=== PATIENT | female | born 1950 | race Caucasian/White ===

== ENCOUNTER → 2021-02-09 10:48 | Outpatient (CLI) | payer MEDICARE, SELFPAY ==
--- NOTE | ~2021-02-09 | CT_ITS ---
EXAMINATION: CT abdomen pelvis w con INDICATION: Abdominal pain and weight loss TECHNIQUE: Computed tomographic images of the abdomen and pelvis were obtained after the administrati on of 100 cc of Omnipaque 350 intravenous contrast. The dose-length product (DLP) was 901.80 mGy-cm. Automated exposure control and iterative reconstruction technique were employed. COMPARISON: None available FINDINGS: The lung bases are clear. The heart size is normal. The liver is diffusely low in attenuati on when compared with the spleen, consistent with hepatic steatosis. There is a 4.1 cm cyst of the li sam. A subtle 2.8 cm lesion is present in the liver dome on image 22. The spleen, pancreas, and adren al glands are normal. The gallbladder is surgically absent. The kidneys are unremarkable. There is ca lcified atherosclerosis of the aorta and many of the other arteries. There is an infraumbilical ventr al hernia containing a short segment of small bowel. The upstream bowel is dilated up to 4 cm and dem onstrates a small bowel feces sign. The bowel distal to the hernia is decompressed. No free intraperi toneal gas is identified. No pathologically enlarged abdominal or pelvic lymph nodes are identified. There is severe thoracolumbar spondylosis. IMPRESSION: 1. Infraumbilical ventral hernia containing a short segment of small bowel with dilated upstream aysha l and decompressed distal bowel, consistent with obstruction. Given the ongoing nature of the patient 's symptoms and CT appearance, emergent surgical evaluation is recommended. These findings and recomm endations were discussed with Gabbi Romeo APRN at 1523 hours on 02/09/2021. 2. Subtle indeterminate lesion of the liver dome. Follow-up by MRI without and with contrast is recom mended. Reviewed, dictated and finalized at location B. OM FEED MILL OPERATOR HELPER IMPRESSION: 1. Infraumbilical ventral hernia containing a short segment of small bowel with dilated upstream bowel and decompressed distal bowel, consistent with obstruct ion. Given the ongoing nature of the patient's symptoms and CT appearance, андрей gent surgical evaluation is recommended. These findings and recommendations radha swanson discussed with Gabbi Romeo APRN at 1523 hours on 02/09/2021. 2. Subtle indeterminate lesion of the liver dome. Follow-up by MRI without and with contrast is recommended.
[2021-02-09 11:06] LABS: Estimated Glomerular Filt Rate > 60
== END ==
PROVIDERS: Visit Provider Nurse Practitioner Family
DX: R10.13 Epigastric pain (principal); K43.9 Ventral hernia without obstruction or gangrene
CPT/HCPCS: 74177; Q9967

== ENCOUNTER → 2021-02-18 12:43 | Outpatient (CLI) | payer MEDICARE, SELFPAY ==
--- NOTE | ~2021-02-18 | MR_ITS ---
EXAMINATION: MR abdomen wo/w con DATE: 02/18/2021 13:58 INDICATION: Abnormal findings on diagnostic imaging of liver and biliary tract. Liver mass. TECHNIQUE: Magnetic resonance imaging (MRI) of the abdomen was performed without and with 19 mL Multi Kar intravenous contrast. Sequences included coronal T2-weighted FS FSE, coronal and axial FS FIEST A, axial T2-weighted FSE, coronal LAVA-flex, axial STIR FSE, axial DWI, axial dual-echo T1-weighted F SPGR, and axial LAVA. Postcontrast sequences included coronal LAVA-flex and a time course of axial LA VA. COMPARISON: CT abdomen and pelvis 02/09/2021, chest CT 11/29/14 FINDINGS: There is diffuse hepatic steatosis. There are 17 mm and 13 mm enhancing masses in right hepatic lobe. There is a 4.9 cm cyst in left hepatic lobe abutting the gallbladder fossa. The spleen is normal. 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 The adrenal glands and kidneys are normal. There is dilated small bowel in right abdomen. There is a 5.6 cm mass of small bowel that extends into the right rectus abd ominis muscle. There is mild aortocaval and left para-aortic lymphadenopathy measuring up to 15 x 13 mm in the left para-aortic chain. There is no free intraperitoneal fluid. IMPRESSION: 1. 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 Ultrasound-guided core needle biopsy of the intramuscular portion of the mass is recommende d for diagnosis. 2. Dilated small bowel, consistent with partial obstruction from the small bowel mass. 3. 17 mm and 13 mm liver masses, consistent with metastatic disease. 4. Mild retroperitoneal lymphadenopathy. Reviewed, dictated and finalized at location A. AL WORK THERAPIST IMPRESSION: 1. 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 Ultrasound-guided core needle biopsy of the int ramuscular portion of the mass is recommended for diagnosis. 2. Dilated small bowel, consistent with partial obstruction from the small aysha l mass. 3. 17 mm and 13 mm liver masses, consistent with metastatic disease. 4. Mild retroperitoneal lymphadenopathy.
== END ==
PROVIDERS: Visit Provider Nurse Practitioner Family
DX: R93.2 Abnormal findings on diagnostic imaging of liver and biliary tract (principal); R63.4 Abnormal weight loss
CPT/HCPCS: 74183; A9577

== ENCOUNTER 2021-03-07 08:54 | Outpatient (CLI) | payer MEDICARE, SELFPAY ==
--- NOTE | 2021-03-07 09:42 | ECG_ITS ---
Measurements Intervals [place] Rate: 92 P: 66 FL: 175 QRS: -12 QRSD: 88 T: 22 QT: 349 QTc: 433 Interpretive Statements SINUS RHYTHM DELAYED PRECORDIAL R/S TRANSITION BORDERLINE T WAVE ABNORMALITY- ANTERIOR LEADS BASELINE ARTIFACT- I, II, III, AVR, AVF BORDERLINE ECG Electronically Signed On 03-07-2021 10:22:04 RESIDENT DOCTOR by Ludin Bland D.O.
[2021-03-07 10:12] LABS: Hematocrit 31.7 % (37.0-47.0); Hemoglobin 10.3 g/dL (12.0-15.0)
[2021-03-07 10:51] LABS: Carcinoembryonic Antigen 9.7 ng/mL (0.0-3.0)
== END 2021-03-07 08:55 | disposition home or self-care (01) ==
PROVIDERS: Anesthesiology; Visit Provider Surgery
DX: K63.89 Other specified diseases of intestine (principal); Z01.818 Encounter for other preprocedural examination; R94.31 Abnormal electrocardiogram [ECG] [EKG]
CPT/HCPCS: 36415; 82378; 85014; 85018; 86850; 86900; 86901; 93005

== ENCOUNTER 2021-03-09 14:26 | Inpatient (IN) | payer MEDICARE, SELFPAY ==
--- NOTE | 2021-03-07 08:37 | PC.NURSE ---
Report to the Outpatient Waiting Room, entrance under the green pavilion located off [facility], at time _0830_ on date _03/09/21_. OR Time: _1030 AM_. - You and your visitor will be asked a series of questions to screen for COVID 19 for your protection. - A mask is required within the hospital. - Only one visitor is allowed at this time. Patient visitors will be guided where to wait when not with patient. Preoperative COVID Testing Requirements: No COVID Test needed if: (proof is required; if not received patient will have Rapid Test prior to entry) - Patient has received COVID Vaccine at least 14 days prior to procedure date or - Patient has positive COVID test result within last 90 days of surgery date. COVID Test needed if above criteria is not met If not COVID vaccinated a COVID test must be conducted within 72 hours of surgery and patient is asked to isolate self from time of testing until procedure. You will go to the [address] [facility] for your COVID testing. The [address] [facility] is located at the corner of [address] [facility]. You will only be called if COVID results are positive and your surgeon may reschedule your elective surgery date. Patients may have clear liquids (water, carbonated beverages, clear teas, apple juice) until 3 hours prior to surgery (0730 AM) with a maximum of 20 ounces. - No food 03/08/21 until time of surgery - Infants may have breast milk until 4 hours before surgery, formula 6 hours prior to surgery. - Children will be allowed to drink immediately following surgery. If applicable, please bring a bottle or sippy cup to assist with drinking. Juice, water, soda, and popsicles are readily available. For infants on formula, please bring formula the day of surgery. Pacifiers are allowed. Take the following medications with a SIP of water the morning of surgery: ___NONE Medications to discontinue per physician _ALL VITAMINS & SUPPLEMENTS - 3 DAYS PRIOR TO SURGERY PER ANESTHESIA ____ Date to take last dose__AS OF TODAY Please no make-up, nail pashto, hairspray, perfume, deodorant, or body powder the day of surgery. No jewelry (including any body piercings) or valuables the day of surgery, leave them at home. Please take a shower or bath the night before, or the morning of, surgery with an antibacterial soap. Wear comfortable, loose fitting clothing. Children are encouraged to wear pajamas. - Jewelry must be removed prior to entering the operating room. Rings and piercings that are not removed may be cut off. - The hospital will not accept responsibility for valuables. - Please leave all valuables, including medications, at home the day of surgery. If you are going home after surgery, a licensed local flatbed driver must drive you home. - NO public transportation without another adult. - We recommend that an adult stay with you for 24 hours following discharge. - We also recommend that you do not drive, make important decision, drink alcoholic beverages, or take any drugs that were not prescribed by your health care provider for at least 24 hours after your discharge time. For Pediatric surgeries, we recommend two adults accompany the child home (only one inside the building at this time). Follow any additional instructions given to you from your surgeon. CLEAR LIQUID DIET DAY PRIOR TO SURGERY, HIBICLENS SHOWER NIGHT BEFORE & AM OF SURGERY. Telephone instructions given to PT and asked if any additional questions and then verbalized understanding. Patient advised to call surgeon office or pre surgery nurse liaison [phone] if any additional questions.
[2021-03-07 09:14] VITALS: BP 160/78; PULSE 92; RESP 18; TEMP 36.7; O2SAT 96; BMI 37.6
[2021-03-09] VITALS (19 sets, daily range): BP systolic 124–163; BP diastolic 56–78; PULSE 81–101; RESP 13–21; TEMP 35.6–36.6; O2SAT 91–100
[2021-03-09] MEDS: ACETAMINOPHEN 500 MG TABLET 1000 MG PO (08:57)
[2021-03-09] MEDS: LACTATED RINGERS 1,000 ML 30 ML IV CONT ×3 (09:09→13:35)
[2021-03-09] MEDS: KETOROLAC 15 MG/ML VIAL (*BKC) IV PUSH (09:13)
--- NOTE | 2021-03-09 09:46 | PM.IMHP ---
H&P: HPI History of Present Illness Date/Time: 03/09/21 09:46 Chief Complaint: Small bowel mass Narrative: This is a 70-year-old woman who initially presented with a possible incarcerated hernia. She was experiencing generalized abdominal pain with bloating and nausea. She was also having problems with her bowels moving. She saw a engineering program manager and CT was ordered which showed evidence of a possible incarcerated hernia in the left lower quadrant. This appeared to be causing a partial bowel obstruction. 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 She is showing signs of near obstruction with episodes of bloating and nausea with solid foods. She now presents for exploratory laparotomy with small-bowel resection. Review of Systems Review of Systems: All systems reviewed & are unremarkable except as noted in HPI and below Constitutional: Constitutional: Denies chills, Denies fever(s), Denies headache(s) and Denies weight loss Eyes: Eyes: Denies change in vision ENT: Denies dizziness, Denies headache(s), Denies neck mass and Denies throat swelling Cardiovascular: Cardiovascular: Denies chest pain, Denies lightheadedness and Denies dyspnea Respiratory: Respiratory: Denies cough, Denies dyspnea and Denies wheezing Gastrointestinal: Gastrointestinal: Denies abdominal pain, Denies change in bowel habits, Denies nausea and Denies vomiting Genitourinary: Genitourinary: Denies hematuria and Denies dysuria Musculoskeletal: Musculoskeletal: Reports as per HPI Integumentary/Breasts: Skin/Breast: Reports as per HPI Neurologic: Denies dizziness and Denies headache(s) Allergic/Immunologic: Allergic/Immunologic: Denies throat swelling and Denies wheezing [facility] Past Medical History Medical History History of pneumonia (~2015) Osteoarthritis of left knee Osteoarthritis of right knee Surgical History Surgical History H/O: hysterectomy (~1993) Hx of cholecystectomy Family History Family History Mother Hypertension Congestive heart failure Father Lung cancer Other Breast cancer Diabetes mellitus Social History Social History (Reviewed 02/14/21 @ 16:56 by ARSALAN Garcia Smoking packs per day: 1 Smoking cigarettes per day: 20.0 Years smoked: 30 Smoking pack-years: 30.00 Smoking status: Former smoker Tobacco type: cigarettes Second hand tobacco smoke exposure: Yes Smoking end date: 04/02/99 Alcohol intake: current Drinks per week: 28 Alcohol use details: daily alcohol use Substance use: never Substance use type: does not use Living arrangements: with family Spiritual care concerns: No Meds Home Medications and Allergies Home Medications Medication Instructions Recorded Confirmed Type vitamins A,C,E-ebce-parsij 14,320 1 cap PO BID 08/22/19 03/09/21 History unit-226 mg-200 unit capsule cholecalciferol (vitamin D3) 10 10 mcg PO DAILY 02/11/21 03/09/21 History mcg (400 unit) capsule omeprazole 40 mg capsule,delayed 40 mg PO DAILY 02/11/21 03/09/21 History release ondansetron HCl 8 mg tablet 8 mg PO Q8H PRN 02/11/21 03/09/21 History polyethylene glycol 3350 17 17 g PO DAILY PRN 02/11/21 03/09/21 History gram/dose oral powder multivitamin [Multi-Vitamin] 2 tablet DAILY 03/07/21 03/09/21 History Allergies Allergy/AdvReac Type Severity Reaction Status Date / Time No Known Allergies Allergy Mild Verified 03/09/21 08:53 Vital Signs Vital Signs - 24 hr 03/09/21 08:44 Temperature 36.2 C L Pulse Rate 98 Respiratory Rate 16 Blood Pressure 141/70 H Pulse Oximetry 100 Exam Const: General: no acute distress and alert Orientation/consciousness: patient oriented x3 HENM
--- NOTE | 2021-03-09 09:47 | WPDANESEPPF ---
Anes - Initial Pre Proc Eval Procedure: Operation Date: 03/09/21 10:30 Proposed Procedures p Exploratory Laparotomy, Small Bowel Resection - Todd Gillis DO Date/Time: 03/09/21 09:47 Surgeon: Todd Gillis DO Pre Op Diagnosis: Small Bowel Mass, Partial Small Bowel Obstruction Patient Data Age: 70 Gender: F Height: 1.63 m Weight: 97.8 kg Last Vital Signs Temp 36.2 C L 03/09/21 08:44 Pulse 98 03/09/21 08:44 Resp 16 03/09/21 08:44 BP 141/70 H 03/09/21 08:44 Pulse Ox 100 03/09/21 08:44 Allergies Allergy/AdvReac Type Severity Reaction Status Date / Time No Known Allergies Allergy Mild Verified 03/09/21 08:53 Home Medications Medication Instructions Recorded Confirmed Type vitamins A,C,Y-scoa-fqdiwq 14,320 1 cap PO BID 08/22/19 03/09/21 History unit-226 mg-200 unit capsule cholecalciferol (vitamin D3) 10 10 mcg PO DAILY 02/11/21 03/09/21 History mcg (400 unit) capsule omeprazole 40 mg capsule,delayed 40 mg PO DAILY 02/11/21 03/09/21 History release ondansetron HCl 8 mg tablet 8 mg PO Q8H PRN 02/11/21 03/09/21 History polyethylene glycol 3350 17 17 g PO DAILY PRN 02/11/21 03/09/21 History gram/dose oral powder multivitamin [Multi-Vitamin] 2 tablet DAILY 03/07/21 03/09/21 History Patient hx anesthesia problems: none Family hx anesthesia problems: none Results Review: All pre-operative results and documents have been reviewed as part of the pre-operative evaluation. [facility] Past Medical History Medical History History of pneumonia (~2015) Osteoarthritis of left knee Osteoarthritis of right knee Small bowel obstruction Surgical History Surgical History H/O: hysterectomy (~1993) Hx of cholecystectomy Family History Family History Mother Hypertension Congestive heart failure Father Lung cancer Other Breast cancer Diabetes mellitus Social History Social History Smoking packs per day: 1 Smoking cigarettes per day: 20.0 Years smoked: 30 Smoking pack-years: 30.00 Smoking status: Former smoker Tobacco type: cigarettes Second hand tobacco smoke exposure: Yes Smoking end date: 04/02/99 Alcohol intake: current Drinks per week: 28 Alcohol use details: daily alcohol use Substance use: never Substance use type: does not use Living arrangements: with family Spiritual care concerns: No Anes - Eval Final PreProcedure Day of Procedure 03/09/21 09:47 Patient weight: obese Heart: regular rate and rhythm Lungs: decreased breath sounds Airway: Mallampati scale class III Neurological: alert and oriented Last oral intake: >/= 8 hours ASA classification: III Emergent: no Anesthetic plan: proceed Anesthesia type and monitoring: general ETT and standard monitoring Results Review: All pre-operative results and documents have been reviewed as part of the pre-operative evaluation. Informed Consent: The patient's anesthetic plan and its attendant risks and benefits were discussed with the patient/family/POA. Questions were solicited and answers provided to the satisfaction of the patient/family/POA.
--- NOTE | 2021-03-09 09:50 | WPDHPUPDATE1 ---
History and Physical Update Update Date/Time: 03/09/21 09:50 History and Physical has been reviewed, including an updated exam of the patient. There are NO changes in the patient's condition. Risks, benefits, and alternatives have been discussed and questions answered. Patient agrees to proceed with procedure.
[2021-03-09] MEDS: ALVIMOPAN 12 MG CAPSULE PO (09:57)
[2021-03-09] MEDS: metroNIDAZOLE 500 MG/ISO 100ML 500 MG/100 ML BAG 100 MG IVPB (10:04)
[2021-03-09] MEDS: ceFAZolin 2 GM/D5W 50 ML 2 GM/50 ML BAG IVPB (10:04)
--- NOTE | 2021-03-09 13:12 | W.PM.PROC2 ---
Procedure Note - Detailed Date of Procedure 03/09/21 Pre-op Diagnosis Small Bowel Mass, Partial Small Bowel Obstruction Post-op Diagnosis same Procedure Performed 1. Exploratory laparotomy 2. Right hemicolectomy with ileocolic anastomosis 3. En bloc resection small bowel mass with excision of abdominal wall mass invading posterior rectus sheath and rectus muscle measuring 3 cm x 5 cm Surgeon Todd Gillis, DO Anesthesia general Indications this is a 70-year-old woman who presented with abdominal pain with nausea and vomiting. She was seen by Gastroenterology and upper and lower endoscopy was going to be planned, but a CT was ordered 1st. This showed evidence of a possible incarcerated hernia in the infraumbilical region containing a loop of small bowel. She then also had an MRI due to a liver lesion that was also seen. 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 She also had 2 areas on the liver that were suspicious for metastases along with intra-abdominal lymphadenopathy. She was nearly obstructed from this mass and still continued to have frequent bouts of nausea and vomiting but this was controlled if she really watched her diet and maintained a soft or liquid diet. Discussions were made with the patient about treatment options and decision was made to proceed with exploratory laparotomy with small-bowel resection. Her preoperative CEA level was 9.7. Findings Exploratory laparotomy was performed. Patient did have some adhesions from her prior open surgeries, but most of these adhesions came down with blunt dissection or electrocautery. The mass was identified just inferior to the umbilicus and this appeared to be invading into the right posterior rectus sheath. I carefully dissected the fascia and rectus muscle around this area to perform an en bloc resection. This left a 3 cm x 5 cm posterior rectus sheath fascial defect, but the anterior rectus sheath was all intact. Once the mass was freed up from the abdominal wall I was then able to carefully inspect the bowel. This appeared to be at the distal small bowel and right before entering into the cecum. Due to its location right at the ileocecal valve, I then had to perform a right hemicolectomy. A [id number] stapled ileocolic anastomosis was performed. The specimen was then sent to the lab for pathology. There did appear to be some enlarged lymph nodes along the mesentery, but I could not palpate any definite liver masses. I placed hemoclips around the fascia where the mass was excised from the posterior rectus sheath. Due to the wide defect, I could not close the posterior rectus sheath. Since the anterior rectus sheath was intact, I chose to leave the resected margins alone at this time. Description of Procedure Procedure as well as risks, benefits, and alternatives were discussed with the patient. Written consent was obtained and placed in chart prior to procedure. Patient was brought back to surgical suite. She was placed supine on operating table. Time-out was done to confirm patient and procedure. She was then intubated by the anesthesia department. Her abdomen was prepped and draped in sterile fashion using chlorhexidine prep. A 10 cm vertical midline incision was made centered on the umbilicus using a 10 blade scalpel. Electrocautery was used for hemostasis and for dissection down through the subcutaneous tissue. The linea alba was then identified and the linea alba was incised using electrocautery. The mass was identified just to the right of the linea alba and was invading into the posterior rectus sheath. There were some omental adhesions around the abdominal wall that were taken down using blunt dissection and electrocautery. The mass was then carefully dissected from the posterior rectus sheath and rectus muscle using electrocautery. Care was taken to try to dissect
[2021-03-09] MEDS: ONDANSETRON INJ 4 MG/2 ML VIAL IV PUSH ×2 (13:24→15:16)
[2021-03-09] MEDS: fentaNYL CITRATE INJ (*CRX) 100 MCG/2 ML VIAL 25 MCG IV PUSH ×4 (13:27→13:56)
--- NOTE | 2021-03-09 14:50 | ADMGEN ---
This patient, Shy Byrd, was admitted to Medical Room 252-. Patient/family oriented to hospital policies and general routines including ID bracelet, bed and alarms, visiting hours, pain management, procedures, bathroom and other care routines, personal items, smoking policy, room service/diet, and visiting hours. Information on how to activate the Rapid Response Team has been discussed. Patient/Family are encouraged to report perceived risks to care and to ask questions if they do not understand what they are told or what they should do.
[2021-03-09] MEDS: MORPHINE SULFATE (*CRX) 4 MG/ML INJ IV PUSH ×2 (15:10→21:02)
[2021-03-09] MEDS: LACTATED RINGERS 1,000 ML 100 ML IV CONT (15:10)
[2021-03-09] MEDS: HYDROcodone/acetaminophen (*CRX) 10-325 MG TABLET 1 TAB PO (17:01)
[2021-03-10] VITALS (7 sets, daily range): BP systolic 114–150; BP diastolic 47–61; PULSE 86–96; RESP 16; TEMP 36–37.1; O2SAT 91–98
[2021-03-10] MEDS: LACTATED RINGERS 1,000 ML 100 ML IV CONT ×4 (01:32→23:33)
[2021-03-10] MEDS: MORPHINE SULFATE (*CRX) 4 MG/ML INJ IV PUSH ×5 (01:32→16:49)
[2021-03-10 05:54] LABS: Basophils Absolute Auto 0.1 K/mm3 (0.0-0.1); Basophils Percent Auto 0.7 % (0.2-1.2); Eosinophils Absolute Auto 0.1 K/mm3 (0-0.3); Hematocrit 29.2 % (37.0-47.0); Hemoglobin 9.5 g/dL (12.0-15.0); Immature Granulocyte Absolute 0.02 K/mm3 (0.00-0.031); Immature Granulocyte Percent A 0.2 % (0-0.5); Lymphocytes Absolute Auto 1.28 K/mm3 (0.9-3.2); Lymphocytes Percent Auto 14.8 % (18.3-44.2); Mean Corpuscular HGB Conc 32.5 g/dl (32-36); Mean Corpuscular Hemoglobin 30.8 pg (26-34); Mean Corpuscular Volume 94.8 fl (80-100); Mean Platelet Volume 9.2 fl (7.4-10.4); Monocytes Absolute Auto 0.7 K/mm3 (0.1-0.6); Monocytes Percent Auto 8.5 % (2.6-8.5); Neutrophils Absolute Auto 6.5 K/mm3 (1.3-6.7); Neutrophils Percent Auto 74.8 % (45.5-73.1); Platelet Count Result 270 k/mm3 (150-375); Red Blood Count 3.08 M/mm3 (4.2-5.4); Red Cell Distribution Width 15.9 % (11.5-14.5); White Blood Count 8.7 K/mm3 (4.5-10.0)
[2021-03-10 06:09] LABS: Anion Gap 7 mmol/L (8-16); Blood Urea Nitrogen 5 mg/dL (7-17); Calcium 7.8 mg/dL (8.4-10.2); Carbon Dioxide 23 mmol/L (22-30); Chloride 97 mmol/L (98-107); Estimated CRCL calculation 71 ml/min; Estimated Glomerular Filt Rate > 60; Glucose 105 mg/dL (65-110); Potassium 3.3 mmol/L (3.4-5.0); Sodium 127 mmol/L (137-145)
[2021-03-10] MEDS: PANTOPRAZOLE 40 MG TABLET PO (09:14)
[2021-03-10] MEDS: ENOXAPARIN 40 MG/0.4 ML SYRINGE SUB-Q (09:14)
--- NOTE | 2021-03-10 11:02 | WPDANESPN ---
Anes - Prog Note Post-Op Date/Time: 03/10/21 11:02 Cardiovascular status: normal Respiratory status: normal Airway patency: baseline Mental status: baseline Post-Op hydration status: normal Vital Signs: Last Vital Signs Temp 37.0 C 03/10/21 08:11 Pulse 94 03/10/21 08:11 Resp 16 03/10/21 08:11 BP 126/47 L 03/10/21 08:11 Pulse Ox 96 03/10/21 08:11 Pain Score (VAS): 0 I/O: Intake & Output 03/09/21 03/10/21 03/10/21 23:59 07:59 15:59 Intake Total 620 1300 330 Balance 620 1300 330 Laboratory Tests 03/10/21 05:45 03/10/21 05:45 03/10/21 03/10/21 05:45 05:45 WBC 8.7 RBC 3.08 L Hgb 9.5 L Hct 29.2 L MCV 94.8 MCH 30.8 MCHC 32.5 RDW 15.9 H Plt Count 270 MPV 9.2 Immature Gran % (Auto) 0.2 Neut % (Auto) 74.8 H Lymph % (Auto) 14.8 L Gaines % (Auto) 8.5 Eos % (Auto) 1.0 Baso % (Auto) 0.7 Lymph # (Auto) 1.28 Gaines # (Auto) 0.7 H Eos # (Auto) 0.1 Baso # (Auto) 0.1 Abs Immat Gran (auto) 0.02 Absolute Neuts (auto) 6.5 Absolute Nucleated RBC 0.0 Nucleated RBC % 0.0 Sodium 127 L Potassium 3.3 L Chloride 97 L Carbon Dioxide 23 Anion Gap 7 L BUN 5 L Creatinine 0.70 Estim Creat Clear Calc 71 Estimated GFR > 60 Glucose 105 Calcium 7.8 L Post-procedural complaints: none Patient Feedback: Patient satisfied with anesthetic care.
--- NOTE | 2021-03-10 12:52 | PM.PNGS ---
Progress Note: A&P Assessment and Plan (1) Small bowel mass: Code(s): K63.89 - Other specified diseases of intestine Status: Acute Assessment and Plan: Await return of bowel function Increase activity Pathology still pending Subjective Subjective Date/Time Seen: 03/10/21 12:52 Interval history: No flatus or BM yet. Having a lot of abdominal pain still. Some nausea but no vomiting. Exam GI: Inspection: distended and incision (intact with evan) Auscultation: Hypoactive bowel sounds present Objective Data Vital Signs Vital Signs: Vital Signs - 24 hr 03/09/21 12:55 03/09/21 13:10 03/09/21 13:25 Temperature Pulse Rate 88 84 81 Respiratory Rate 20 20 16 Blood Pressure 158/77 H 150/71 H 162/78 H Pulse Oximetry 98 91 98 03/09/21 13:40 03/09/21 13:55 03/09/21 14:10 Temperature Pulse Rate 85 86 91 Respiratory Rate 16 14 14 Blood Pressure 163/72 H 143/70 H 131/71 Pulse Oximetry 99 98 99 03/09/21 14:23 03/09/21 14:40 03/09/21 14:55 Temperature 35.6 C L 36.4 C Pulse Rate 90 88 93 Respiratory Rate 16 16 16 Blood Pressure 135/71 142/68 H 135/66 Pulse Oximetry 99 99 98 03/09/21 15:00 03/09/21 15:25 03/09/21 16:25 Temperature 36.6 C 36.1 C L Pulse Rate 90 88 Respiratory Rate 16 18 Blood Pressure 141/69 H 160/74 H Pulse Oximetry 99 99 100 03/09/21 17:06 03/09/21 20:00 03/09/21 20:11 Temperature 36.1 C L Pulse Rate 101 H 101 H Respiratory Rate 16 16 Blood Pressure 136/56 L Pulse Oximetry 99 100 100 03/10/21 00:11 03/10/21 04:11 03/10/21 08:00 Temperature 36.3 C L 36.0 C L Pulse Rate 89 86 Respiratory Rate 16 16 Blood Pressure 114/52 L 150/54 H Pulse Oximetry 98 97 97 03/10/21 08:11 Temperature 37.0 C Pulse Rate 94 Respiratory Rate 16 Blood Pressure 126/47 L Pulse Oximetry 96 Intake/Output Intake/Output: Intake & Output 03/07/21 03/08/21 03/09/21 03/10/21 23:59 23:59 23:59 23:59 Intake Total 1470 2935 Balance 1470 2935 Meds/Results Medications: Active Medications Generic Name Dose Route Start Last Admin Trade Name Freq PRN Reason Stop Dose Admin Acetaminophen 650 mg 03/09/21 14:26 Acetaminophen 325 Mg Tablet PO Q6H PRN Mild Pain (1-3) or Fever Hydrocodone Bitart/Acetaminophen 1 tab 03/09/21 14:26 Hydrocodone/Acetaminophen (*Crx) 5-325 Mg Tablet PO Q4H PRN Pain Rated 4-6 Hydrocodone Bitart/Acetaminophen 1 tab 03/09/21 14:26 03/09/21 17:01 Hydrocodone/Acetaminophen (*Crx) 10-325 Mg Tablet PO 1 tab Q4H PRN Administration Pain Rated 7-10 Alvimopan 12 mg 03/10/21 12:50 Alvimopan 12 Mg Capsule PO Q12HR RADHA Enoxaparin Sodium 40 mg 03/10/21 09:00 03/10/21 09:14 Enoxaparin 40 Mg/0.4 Ml Syringe SUB-Q 40 mg DAILY RADHA Administration Lactated Ringer's 1,000 mls @ 100 mls/hr 03/10/21 12:50 Lr - Lactated Ringers Iv IV CONT .Q10H RADHA Potassium Chloride 100 mls @ 50 mls/hr 03/10/21 12:47 Kcl 20 Meq/Sw 100 Ml IVPB 03/10/21 14:46 ONCE ONE Morphine Sulfate 2 mg 03/09/21 14:26 Morphine Sulfate (*Crx) 2 Mg/Ml Inj IV PUSH Q2H PRN Pain Rated 4-6 Morphine Sulfate 4 mg 03/09/21 14:26 03/10/21 11:59 Morphine Sulfate (*Crx) 4 Mg/Ml Inj IV PUSH 4 mg Q2H PRN Administration Pain Rated 7-10 Ondansetron HCl 4 mg 03/09/21 14:26 03/09/21 15:16 Ondansetron Inj 4 Mg/2 Ml Vial IV PUSH 4 mg Q4H PRN Administration Nausea And Vomiting Pantoprazole Sodium 40 mg 03/10/21 09:00 03/10/21 09:14 Pantoprazole 40 Mg Tablet PO 40 mg QAM RADHA Administration Labs Labs: Laboratory Results - last 24 hr 03/10/21 03/10/21 05:45 05:45 WBC 8.7 RBC 3.08 L Hgb 9.5 L Hct 29.2 L MCV 94.8 MCH 30.8 MCHC 32.5 RDW 15.9 H Plt Count 270 MPV 9.2 Immature Gran % (Auto) 0.2 Neut % (Auto) 74.8 H Lymph % (Auto) 14.8 L [place] % (Auto) 8.5 Eos % (Auto) 1.0 Baso % (Auto) 0.7 Ly
[2021-03-10] MEDS: ALVIMOPAN 12 MG CAPSULE PO ×2 (14:09→20:50)
[2021-03-10] MEDS: KCL 20 MEQ/SW 100 ML 100 ML 50 MEQ IVPB (14:09)
[2021-03-10] MEDS: ONDANSETRON INJ 4 MG/2 ML VIAL IV PUSH (14:13)
[2021-03-10] MEDS: MORPHINE SULFATE (*CRX) 2 MG/ML INJ IV PUSH (20:45)
[2021-03-11] MEDS: MORPHINE SULFATE (*CRX) 2 MG/ML INJ IV PUSH ×2 (05:41→11:02)
[2021-03-11 06:25] LABS: Hematocrit 29.6 % (37.0-47.0); Hemoglobin 9.5 g/dL (12.0-15.0); Mean Corpuscular HGB Conc 32.1 g/dl (32-36); Mean Corpuscular Hemoglobin 30.4 pg (26-34); Mean Corpuscular Volume 94.6 fl (80-100); Mean Platelet Volume 9.4 fl (7.4-10.4); Platelet Count Result 278 k/mm3 (150-375); Red Blood Count 3.13 M/mm3 (4.2-5.4); White Blood Count 7.3 K/mm3 (4.5-10.0)
[2021-03-11 06:36] LABS: Anion Gap 9 mmol/L (8-16); Blood Urea Nitrogen 2 mg/dL (7-17); Calcium 8.2 mg/dL (8.4-10.2); Carbon Dioxide 23 mmol/L (22-30); Chloride 96 mmol/L (98-107); Estimated CRCL calculation 82 ml/min; Estimated Glomerular Filt Rate > 60; Glucose 97 mg/dL (65-110); Potassium 3.3 mmol/L (3.4-5.0); Sodium 128 mmol/L (137-145)
[2021-03-11] MEDS: ENOXAPARIN 40 MG/0.4 ML SYRINGE SUB-Q (08:23)
[2021-03-11] MEDS: ALVIMOPAN 12 MG CAPSULE PO ×2 (08:23→21:40)
[2021-03-11] MEDS: PANTOPRAZOLE 40 MG TABLET PO (08:23)
[2021-03-11] MEDS: HYDROcodone/acetaminophen (*CRX) 10-325 MG TABLET 1 TAB PO ×4 (08:24→21:44)
[2021-03-11] MEDS: ONDANSETRON INJ 4 MG/2 ML VIAL IV PUSH ×2 (08:24→17:44)
[2021-03-11] MEDS: LACTATED RINGERS 1,000 ML 100 ML IV CONT (08:30)
[2021-03-11 11:31] VITALS: BMI 37.0
--- NOTE | 2021-03-11 11:36 | PM.PNGS ---
Progress Note: A&P Assessment and Plan (1) Small bowel mass: Code(s): K63.89 - Other specified diseases of intestine Status: Acute Assessment and Plan: Will stop IV fluids and advance to full liquids Await return of bowel function Increase activity Pathology still pending Subjective Subjective Date/Time Seen: 03/11/21 11:36 Interval history: Tolerating clear liquids. No BM or Flatus yet. Occasional minimal nausea but no vomiting. Exam GI: Inspection: distended GI Palp: Yes Soft to palpation, Yes Tenderness to palpation present (GI) (incisional) and No Guarding due to palpation present (GI) Auscultation: Hypoactive bowel sounds present Objective Data Vital Signs Vital Signs: Vital Signs - 24 hr 03/10/21 12:55 03/10/21 16:11 03/10/21 22:00 Temperature 36.8 C 37.1 C 36.4 C Pulse Rate 96 93 92 Respiratory Rate 16 16 16 Blood Pressure 135/61 129/54 L 136/54 L Pulse Oximetry 93 95 91 Intake/Output Intake/Output: Intake & Output 03/08/21 03/09/21 03/10/21 03/11/21 23:59 23:59 23:59 23:59 Intake Total 1470 4275 1620 Output Total 1000 Balance 1470 4275 620 Meds/Results Medications: Active Medications Generic Name Dose Route Start Last Admin Trade Name Freq PRN Reason Stop Dose Admin Acetaminophen 650 mg 03/09/21 14:26 Acetaminophen 325 Mg Tablet PO Q6H PRN Mild Pain (1-3) or Fever Hydrocodone Bitart/Acetaminophen 1 tab 03/09/21 14:26 Hydrocodone/Acetaminophen (*Crx) 5-325 Mg Tablet PO Q4H PRN Pain Rated 4-6 Hydrocodone Bitart/Acetaminophen 1 tab 03/09/21 14:26 03/11/21 08:24 Hydrocodone/Acetaminophen (*Crx) 10-325 Mg Tablet PO 1 tab Q4H PRN Administration Pain Rated 7-10 Alvimopan 12 mg 03/10/21 12:50 03/11/21 08:23 Alvimopan 12 Mg Capsule PO 03/17/21 09:01 12 mg Q12HR RADHA Administration Enoxaparin Sodium 40 mg 03/10/21 09:00 03/11/21 08:23 Enoxaparin 40 Mg/0.4 Ml Syringe SUB-Q 40 mg DAILY RADHA Administration Lactated Ringer's 1,000 mls @ 100 mls/hr 03/10/21 12:50 03/11/21 08:30 Lr - Lactated Ringers Iv IV CONT 100 mls/hr .Q10H RADHA Administration Morphine Sulfate 2 mg 03/09/21 14:26 03/11/21 11:02 Morphine Sulfate (*Crx) 2 Mg/Ml Inj IV PUSH 2 mg Q2H PRN Administration Pain Rated 4-6 Morphine Sulfate 4 mg 03/09/21 14:26 03/10/21 16:49 Morphine Sulfate (*Crx) 4 Mg/Ml Inj IV PUSH 4 mg Q2H PRN Administration Pain Rated 7-10 Ondansetron HCl 4 mg 03/09/21 14:26 03/11/21 08:24 Ondansetron Inj 4 Mg/2 Ml Vial IV PUSH 4 mg Q4H PRN Administration Nausea And Vomiting Pantoprazole Sodium 40 mg 03/10/21 09:00 03/11/21 08:23 Pantoprazole 40 Mg Tablet PO 40 mg QAM RADHA Administration Labs Labs: Laboratory Results - last 24 hr 03/11/21 03/11/21 05:52 05:52 WBC 7.3 RBC 3.13 L Hgb 9.5 L Hct 29.6 L MCV 94.6 MCH 30.4 MCHC 32.1 RDW 16.0 H Plt Count 278 MPV 9.4 Sodium 128 L Potassium 3.3 L Chloride 96 L Carbon Dioxide 23 Anion Gap 9 BUN 2 L Creatinine 0.60 L Estim Creat Clear Calc 82 Estimated GFR > 60 Glucose 97 Calcium 8.2 L
[2021-03-11 14:15] VITALS: BP 138/62; PULSE 80; RESP 16; TEMP 36.4; O2SAT 95
[2021-03-11 22:28] VITALS: BP 143/71; PULSE 73; RESP 17; TEMP 37.1; O2SAT 96
[2021-03-12] MEDS: HYDROcodone/acetaminophen (*CRX) 10-325 MG TABLET 1 TAB PO (05:44)
[2021-03-12 05:48] VITALS: BP 153/75; PULSE 89; RESP 18; TEMP 36.8; O2SAT 94
[2021-03-12 05:51] LABS: Hematocrit 28.9 % (37.0-47.0); Hemoglobin 9.2 g/dL (12.0-15.0); Mean Corpuscular HGB Conc 31.8 g/dl (32-36); Mean Corpuscular Hemoglobin 30.2 pg (26-34); Mean Corpuscular Volume 94.8 fl (80-100); Mean Platelet Volume 9.5 fl (7.4-10.4); Platelet Count Result 291 k/mm3 (150-375); Red Blood Count 3.05 M/mm3 (4.2-5.4); Red Cell Distribution Width 15.9 % (11.5-14.5); White Blood Count 5.6 K/mm3 (4.5-10.0)
[2021-03-12 06:04] LABS: Anion Gap 6 mmol/L (8-16); Blood Urea Nitrogen 3 mg/dL (7-17); Calcium 8.3 mg/dL (8.4-10.2); Carbon Dioxide 25 mmol/L (22-30); Chloride 94 mmol/L (98-107); Estimated CRCL calculation 99 ml/min; Estimated Glomerular Filt Rate > 60; Glucose 83 mg/dL (65-110); Potassium 3.5 mmol/L (3.4-5.0); Sodium 125 mmol/L (137-145)
[2021-03-12] MEDS: ONDANSETRON INJ 4 MG/2 ML VIAL IV PUSH (06:20)
[2021-03-12] MEDS: ALVIMOPAN 12 MG CAPSULE PO ×2 (08:04→20:44)
[2021-03-12] MEDS: ENOXAPARIN 40 MG/0.4 ML SYRINGE SUB-Q (08:05)
[2021-03-12] MEDS: PANTOPRAZOLE 40 MG TABLET PO (08:05)
[2021-03-12] MEDS: HYDROcodone/acetaminophen (*CRX) 5-325 MG TABLET 1 TAB PO ×2 (11:55→20:43)
[2021-03-12 14:05] VITALS: BP 144/57; PULSE 76; RESP 14; TEMP 36.3; O2SAT 98
--- NOTE | 2021-03-12 20:43 | PM.PNGS ---
Progress Note: A&P Assessment and Plan (1) Small bowel mass: Code(s): K63.89 - Other specified diseases of intestine Status: Acute Assessment and Plan: Will resume IV fluids at a low rate in view of low sodium and possible persistent post-op ileus and ask pt to be judicious and take in full liquids only if not really nauseated Await return of bowel function Increase activity Pathology shows a pT4b,pN1b,pMX adenocarcinoma of colonic orgin. Start NaCl tabs tonight and recheck labs in AM Subjective Subjective Date/Time Seen: 03/12/21 17:43 patient lying in bed when I entered the room. She states she has not passed flatus nor had a bowel movement since surgery. She did ask for something for nausea couple hours ago. Claims not to be nauseated right now. Also was not hungry for her full liquid supper that arrived she states she has been getting up walking in hallway at least once today. Review of Systems Review of Systems: All systems reviewed & are unremarkable except as noted in HPI and below Constitutional: Constitutional: Denies chills, Denies fever(s), Denies headache(s) and Denies weight loss Eyes: Eyes: Denies change in vision ENT: Denies dizziness, Denies headache(s), Denies neck mass and Denies throat swelling Cardiovascular: Cardiovascular: Denies chest pain, Denies lightheadedness and Denies dyspnea Respiratory: Respiratory: Denies cough, Denies dyspnea and Denies wheezing Gastrointestinal: Gastrointestinal: Reports abdominal pain (incisional), Reports nausea (mild, but took med for it) and Denies vomiting Genitourinary: Genitourinary: Denies hematuria and Denies dysuria Musculoskeletal: Musculoskeletal: Reports as per HPI Integumentary/Breasts: Skin/Breast: Reports as per HPI Neurologic: Denies dizziness and Denies headache(s) Allergic/Immunologic: Allergic/Immunologic: Denies throat swelling and Denies wheezing Exam Const: General: no acute distress and alert Orientation/consciousness: patient oriented x3 HENMT: Head: normocephalic and atraumatic Ears: hearing grossly normal bilaterally General nose exam: Normal nares present Mouth: Yes Normal oral and palatal mucosa present Eyes: Periorbital: periorbital findings normal Sclera: sclerae normal EOM: EOMs intact bilaterally Neck: Neck: normal visual inspection, no lymphadenopathy and trachea midline Chest: Chest palpation & inspection: normal inspection of the chest Resp: Effort & Inspection: normal respiratory effort Auscultation: clear to auscultation bilaterally Cardio: Jugular venous distension: no JVD Rate: regular rate Rhythm: regular rhythm Heart sounds: S1 normal heart sound present and S2 normal heart sound present Peripheral pulses: Peripheral pulses 2+ throughout GI: Inspection: distended and incision (intact with evan/clean & Dry) GI Palp: Yes Other GI palpation findings present (rounded) Percussion: Yes dullness to percussion Auscultation: High-pitched bowel sounds present (with some tinkling) Rectal Exam: deferred Neuro: General: patient oriented x3, no focal motor deficits and CN's II-XI intact bilaterally Cognition (Neuro): normal cognition Speech: normal speech Motor exam (neuro): 5/5 motor strength present throughout Objective Data Vital Signs Vital Signs: Vital Signs - 24 hr 03/11/21 22:28 03/12/21 05:48 03/12/21 14:05 Temperature 37.1 C 36.8 C 36.3 C L Pulse Rate 73 89 76 Respiratory Rate 17 18 14 Blood Pressure 143/71 H 153/75 H 144/57 H Pulse Oximetry 96 94 98 Intake/Output Intake/Output: Intake & Output 03/09/21 03/10/21 03/11/21 03/12/21 23:59 23:59 23:59 23:59 Intake Total 1470 4275 2630 2550 Output Total 1900 2600 Balance 1470 4275 730 -50 Meds/Results Medications: Active Medications Generic Name Dose Route Start Last Admin Trade Name Gageq PRN Reason Stop Dose Admin Acetaminophen 650 mg 03/09/21 14:26 Acetaminophen 325 Mg Tablet PO Q6H PRN
[2021-03-12 22:27] VITALS: BP 162/60; PULSE 77; RESP 16; TEMP 36.7; O2SAT 99
[2021-03-12] MEDS: SODIUM CHLORIDE 500 MG TABLET PO (23:19)
[2021-03-12] MEDS: SODIUM CHLORIDE 0.9% IV 1,000 ML 50 ML IV CONT (23:19)
[2021-03-13 05:19] VITALS: BP 178/84; PULSE 87; RESP 18; TEMP 36.1; O2SAT 97
[2021-03-13 06:17] LABS: Anion Gap 5 mmol/L (8-16); Blood Urea Nitrogen 3 mg/dL (7-17); Carbon Dioxide 27 mmol/L (22-30); Chloride 95 mmol/L (98-107); Estimated CRCL calculation 99 ml/min; Estimated Glomerular Filt Rate > 60; Glucose 92 mg/dL (65-110); Magnesium 1.5 mg/dL (1.6-2.3); Potassium 3.3 mmol/L (3.4-5.0); Sodium 127 mmol/L (137-145)
[2021-03-13] MEDS: ALVIMOPAN 12 MG CAPSULE PO ×2 (08:03→21:16)
[2021-03-13] MEDS: ENOXAPARIN 40 MG/0.4 ML SYRINGE SUB-Q (08:03)
[2021-03-13] MEDS: SODIUM CHLORIDE 500 MG TABLET PO ×2 (08:03→16:23)
[2021-03-13] MEDS: PANTOPRAZOLE 40 MG TABLET PO (08:03)
[2021-03-13] MEDS: HYDROcodone/acetaminophen (*CRX) 5-325 MG TABLET 1 TAB PO ×3 (08:08→16:22)
[2021-03-13] MEDS: KCL 20 MEQ/SW 100 ML 100 ML 50 MEQ IVPB (10:46)
[2021-03-13] MEDS: ONDANSETRON INJ 4 MG/2 ML VIAL IV PUSH (12:11)
[2021-03-13] MEDS: MAGNESIUM OXIDE 400 MG TABLET PO ×2 (12:11→16:23)
[2021-03-13 14:30] VITALS: BP 170/71; PULSE 74; RESP 16; TEMP 36.4; O2SAT 99
[2021-03-13 16:14] LABS: Basophils Percent Auto 0.8 % (0.2-1.2); Eosinophils Absolute Auto 0.1 K/mm3 (0-0.3); Eosinophils Percent Auto 1.9 % (0-4.4); Hematocrit 28.6 % (37.0-47.0); Hemoglobin 9.3 g/dL (12.0-15.0); Immature Granulocyte Absolute 0.03 K/mm3 (0.00-0.031); Immature Granulocyte Percent A 0.6 % (0-0.5); Lymphocytes Absolute Auto 1.17 K/mm3 (0.9-3.2); Lymphocytes Percent Auto 22.1 % (18.3-44.2); Mean Corpuscular HGB Conc 32.5 g/dl (32-36); Mean Corpuscular Volume 95.3 fl (80-100); Monocytes Absolute Auto 0.7 K/mm3 (0.1-0.6); Monocytes Percent Auto 12.7 % (2.6-8.5); Neutrophils Absolute Auto 3.3 K/mm3 (1.3-6.7); Neutrophils Percent Auto 61.9 % (45.5-73.1); Platelet Count Result 296 k/mm3 (150-375); Red Cell Distribution Width 16.1 % (11.5-14.5); White Blood Count 5.3 K/mm3 (4.5-10.0)
[2021-03-13] MEDS: MORPHINE SULFATE (*CRX) 2 MG/ML INJ IV PUSH (17:53)
[2021-03-13 20:00] VITALS: PULSE 83; RESP 18; O2SAT 95
[2021-03-13 22:00] VITALS: BP 158/60; PULSE 83; RESP 18; TEMP 36.7; O2SAT 95
--- NOTE | 2021-03-13 23:20 | PM.PNGS ---
Progress Note: A&P Assessment and Plan (1) Small bowel mass: Code(s): K63.89 - Other specified diseases of intestine Status: Acute Assessment and Plan: Will resume IV fluids at a low rate in view of low sodium and possible persistent post-op ileus and ask pt to be judicious and take in full liquids only if not really nauseated It appears there is some return of bowel function Increase activity Pathology shows a pT4b,pN1b,pMX adenocarcinoma of colonic origin. -- discussed briefly with patient and encouraged her to keep her medical oncology appointment next week Taking NaCl tabs and recheck labs in AM give one Kcl rider Subjective Subjective Date/Time Seen: 03/13/21 20:20 Post Op day: 5 Patient reports: still having pain, tolerating liquids well, bowel movement (X 2 today) and nausea (on and off) Interval history: Patient states she still occasionally feels some nausea but much better than yesterday with less distention of the abdomen. Review of Systems Review of Systems: All systems reviewed & are unremarkable except as noted in HPI and below Constitutional: Constitutional: Denies chills, Denies fever(s), Denies headache(s) and Denies weight loss Eyes: Eyes: Denies change in vision ENT: Denies dizziness, Denies headache(s), Denies neck mass and Denies throat swelling Cardiovascular: Cardiovascular: Denies chest pain, Denies lightheadedness and Denies dyspnea Respiratory: Respiratory: Denies cough, Denies dyspnea and Denies wheezing Gastrointestinal: Gastrointestinal: Reports abdominal pain (incisional), Denies change in bowel habits, Reports nausea (mild, but took med for it) and Denies vomiting Genitourinary: Genitourinary: Denies hematuria and Denies dysuria Musculoskeletal: Musculoskeletal: Reports as per HPI Integumentary/Breasts: Skin/Breast: Reports as per HPI Neurologic: Denies dizziness and Denies headache(s) Allergic/Immunologic: Allergic/Immunologic: Denies throat swelling and Denies wheezing Exam Const: General: no acute distress and alert Orientation/consciousness: patient oriented x3 HENMT: Head: normocephalic and atraumatic Ears: hearing grossly normal bilaterally General nose exam: Normal nares present Mouth: Yes Normal oral and palatal mucosa present Eyes: Periorbital: periorbital findings normal Sclera: sclerae normal EOM: EOMs intact bilaterally Neck: Neck: normal visual inspection, no lymphadenopathy and trachea midline Chest: Chest palpation & inspection: normal inspection of the chest Resp: Effort & Inspection: normal respiratory effort Auscultation: clear to auscultation bilaterally Cardio: Jugular venous distension: no JVD Rate: regular rate Rhythm: regular rhythm Heart sounds: S1 normal heart sound present and S2 normal heart sound present Peripheral pulses: Peripheral pulses 2+ throughout GI: Inspection: incision ( Clean and dry -- evan intact) GI Palp: Yes Soft to palpation Auscultation: normal bowel sounds : General: Yes no CVA tenderness Back/Spine/Pelvis: Back: no CVA tenderness Neuro: General: patient oriented x3, no focal motor deficits and CN's II-XI intact bilaterally Cognition (Neuro): normal cognition Speech: normal speech Motor exam (neuro): 5/5 motor strength present throughout Extrem: General: capillary refill normal and no clubbing, cyanosis or edema Objective Data Vital Signs Vital Signs: Vital Signs - 24 hr 03/13/21 05:19 03/13/21 14:30 03/13/21 20:00 Temperature 36.1 C L 36.4 C Pulse Rate 87 74 83 Respiratory Rate 18 16 18 Blood Pressure 178/84 H 170/71 H Pulse Oximetry 97 99 95 03/13/21 22:00 Temperature 36.7 C Pulse Rate 83 Respiratory Rate 18 Blood Pressure 158/60 H Pulse Oximetry 95 Intake/Output Intake/Output: Intake & Output 03/10/21 03/11/21 03/12/21 03/13/21 23:59 23:59 23:59 23:59 Intake Total 4275 2630 2550 1330 Output Total 1900 2600 2800 Balance 4279 154 -20 -0084
[2021-03-14 02:00] VITALS: BP 172/66; PULSE 87; RESP 16; TEMP 36.6; O2SAT 94
[2021-03-14 06:00] VITALS: BP 140/60; PULSE 83; RESP 18; TEMP 37; O2SAT 97
[2021-03-14 06:28] LABS: Anion Gap 6 mmol/L (8-16); Blood Urea Nitrogen 4 mg/dL (7-17); Calcium 8.5 mg/dL (8.4-10.2); Carbon Dioxide 26 mmol/L (22-30); Chloride 96 mmol/L (98-107); Estimated CRCL calculation 99 ml/min; Estimated Glomerular Filt Rate > 60; Glucose 101 mg/dL (65-110); Potassium 3.4 mmol/L (3.4-5.0); Sodium 128 mmol/L (137-145)
[2021-03-14] MEDS: PANTOPRAZOLE 40 MG TABLET PO (09:13)
[2021-03-14] MEDS: HYDROcodone/acetaminophen (*CRX) 5-325 MG TABLET 1 TAB PO ×3 (09:13→20:39)
[2021-03-14] MEDS: SODIUM CHLORIDE 500 MG TABLET PO ×2 (09:13→17:22)
[2021-03-14] MEDS: ALVIMOPAN 12 MG CAPSULE PO ×2 (09:13→20:39)
[2021-03-14] MEDS: ENOXAPARIN 40 MG/0.4 ML SYRINGE SUB-Q (09:13)
[2021-03-14] MEDS: ONDANSETRON INJ 4 MG/2 ML VIAL IV PUSH (09:13)
[2021-03-14] MEDS: MAGNESIUM OXIDE 400 MG TABLET PO ×2 (09:14→17:22)
--- NOTE | 2021-03-14 11:28 | PM.PNGS ---
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 Will have patient follow up with Dr. Leyva as an outpatient. Advance to regular diet. Increase activity. Possibly home tomorrow if improving. (2) Hyponatremia: Code(s): E87.1 - Hypo-osmolality and hyponatremia Status: Acute Subjective Subjective Date/Time Seen: 03/14/21 11:28 Interval history: Bowels moving. Tolerating full liquids, but says she cannot eat a large amount yet. Having some occasional nausea, but no vomiting. Up ambulating. Exam GI: Inspection: non-distended and incision (intact with evan, no drainage) GI Palp: Yes Tenderness to palpation present (GI) (incisional) Auscultation: normal bowel sounds Objective Data Vital Signs Vital Signs: Vital Signs - 24 hr 03/13/21 14:30 03/13/21 20:00 03/13/21 22:00 Temperature 36.4 C 36.7 C Pulse Rate 74 83 83 Respiratory Rate 16 18 18 Blood Pressure 170/71 H 158/60 H Pulse Oximetry 99 95 95 03/14/21 02:00 03/14/21 06:00 Temperature 36.6 C 37.0 C Pulse Rate 87 83 Respiratory Rate 16 18 Blood Pressure 172/66 H 140/60 Pulse Oximetry 94 97 Intake/Output Intake/Output: Intake & Output 03/11/21 03/12/21 03/13/21 03/14/21 23:59 23:59 23:59 23:59 Intake Total 2630 2550 1330 760 Output Total 1900 2600 2800 600 Balance 160 Meds/Results Medications: Active Medications Generic Name Dose Route Start Last Admin Trade Name Freq PRN Reason Stop Dose Admin Acetaminophen 650 mg 03/09/21 14:26 Acetaminophen 325 Mg Tablet PO Q6H PRN Mild Pain (1-3) or Fever Hydrocodone Bitart/Acetaminophen 1 tab 03/09/21 14:26 03/14/21 09:13 Hydrocodone/Acetaminophen (*Crx) 5-325 Mg Tablet PO 1 tab Q4H PRN Administration Pain Rated 4-6 Hydrocodone Bitart/Acetaminophen 1 tab 03/09/21 14:26 03/12/21 05:44 Hydrocodone/Acetaminophen (*Crx) 10-325 Mg Tablet PO 1 tab Q4H PRN Administration Pain Rated 7-10 Alvimopan 12 mg 03/10/21 12:50 03/14/21 09:13 Alvimopan 12 Mg Capsule PO 03/17/21 09:01 12 mg Q12HR RADHA Administration Enoxaparin Sodium 40 mg 03/10/21 09:00 03/14/21 09:13 Enoxaparin 40 Mg/0.4 Ml Syringe SUB-Q 40 mg DAILY RADHA Administration Magnesium Oxide 400 mg 03/13/21 10:50 03/14/21 09:14 Magnesium Oxide 400 Mg Tablet PO 400 mg BID RADHA Administration Morphine Sulfate 2 mg 03/09/21 14:26 03/13/21 17:53 Morphine Sulfate (*Crx) 2 Mg/Ml Inj IV PUSH 2 mg Q2H PRN Administration Pain Rated 4-6 Morphine Sulfate 4 mg 03/09/21 14:26 03/10/21 16:49 Morphine Sulfate (*Crx) 4 Mg/Ml Inj IV PUSH 4 mg Q2H PRN Administration Pain Rated 7-10 Ondansetron HCl 4 mg 03/09/21 14:26 03/14/21 09:13 Ondansetron Inj 4 Mg/2 Ml Vial IV PUSH 4 mg Q4H PRN Administration Nausea And Vomiting Pantoprazole Sodium 40 mg 03/10/21 09:00 03/14/21 09:13 Pantoprazole 40 Mg Tablet PO 40 mg QAM RADHA Administration Sodium Chloride 500 mg 03/12/21 17:00 03/14/21 09:13 Sodium Chloride 500 Mg Tablet PO 500 mg BID RADHA Administration Labs Labs: Laboratory Results - last 24 hr 03/13/21 03/14/21 16:09 05:38 WBC 5.3 RBC 3.00 L Hgb 9.3 L Hct 28.6 L MCV 95.3 MCH 31.0 MCHC 32.5 RDW 16.1 H Plt Count 296 MPV 9.0 Immature Gran % (Auto) 0.6 H Neut % (Auto) 61.9 Lymph % (Auto) 22.1 [place] % (Auto) 12.7 H Eos % (Auto) 1.9 Baso % (Auto) 0.8 Lymph # (Auto) 1.17 [place] # (Auto) 0.7 H Eos # (Auto) 0.1 Baso # (Auto) 0.0 Abs Immat Gran (auto) 0.03 Absolute Neuts (auto) 3.3 Absolute Nucleated RBC 0.0 Nucleated RBC % 0.0 Sodium 128 L Potassium 3.4 Chloride 96 L Carbon Dioxide 26 Anion Gap 6 L BUN 4 L Creatinine 0.50 L Estim Creat Clear Calc 99 Estimated GFR
--- NOTE | 2021-03-14 11:43 | PCNFU ---
Nutrition Follow-Up Complete: Inadequate Oral Intake as related to SBO as evidenced by poor po intake Goal: Meet estimated nutritional needs Patient is progressing towards goal. We will continue current goal. Pt current nutrition is Regular with Ensure Surgery BID. Last recorded weight is 104.6 kg, up from 97.8 kg on admit. Bowel Motility:+BM reported 03/14 Labs Reviewed:Cr 0.5,Na 128 Meds Noted:Sodium Chloride, Mag ox, Lovenox, Entereg, Protonix, [place], Zofran Skin:WNL Additional Notes: Patient states still feeling nauseated. She did tolerate her cream of wheat today and drinking ensure surgery supplement over ice. Diet order advanced to a regular diet today. +BM today. Will continue to encouraged po intake. Monitoring: Will monitor every 3 days.
[2021-03-14 14:50] VITALS: BP 170/69; PULSE 77; RESP 18; TEMP 36.4; O2SAT 97
[2021-03-14 20:00] VITALS: PULSE 76; RESP 18; O2SAT 97
[2021-03-14 21:09] VITALS: BP 150/60; PULSE 76; RESP 18; TEMP 36.8; O2SAT 97
[2021-03-15 01:00] VITALS: BP 160/70; PULSE 89; RESP 18; TEMP 36.4; O2SAT 94
[2021-03-15] MEDS: HYDROcodone/acetaminophen (*CRX) 10-325 MG TABLET 1 TAB PO ×2 (03:04→09:48)
[2021-03-15 05:17] VITALS: BP 152/66; PULSE 83; RESP 18; TEMP 36.7; O2SAT 95
[2021-03-15 05:28] LABS: Hematocrit 28.8 % (37.0-47.0); Hemoglobin 9.3 g/dL (12.0-15.0); Mean Corpuscular HGB Conc 32.3 g/dl (32-36); Mean Corpuscular Hemoglobin 30.3 pg (26-34); Mean Corpuscular Volume 93.8 fl (80-100); Mean Platelet Volume 9.3 fl (7.4-10.4); Platelet Count Result 356 k/mm3 (150-375); Red Blood Count 3.07 M/mm3 (4.2-5.4); Red Cell Distribution Width 16.2 % (11.5-14.5); White Blood Count 7.1 K/mm3 (4.5-10.0)
[2021-03-15 05:59] LABS: Anion Gap 3 mmol/L (8-16); Blood Urea Nitrogen 8 mg/dL (7-17); Calcium 8.4 mg/dL (8.4-10.2); Carbon Dioxide 26 mmol/L (22-30); Chloride 97 mmol/L (98-107); Estimated CRCL calculation 85 ml/min; Estimated Glomerular Filt Rate > 60; Glucose 106 mg/dL (65-110); Magnesium 1.7 mg/dL (1.6-2.3); Potassium 3.7 mmol/L (3.4-5.0); Sodium 126 mmol/L (137-145)
--- NOTE | 2021-03-15 08:54 | PM.DS ---
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 She was seen in office by FRENCH Reese on 02/03/2021. CT abdomen and pelvis was obtained on 02/09/2021. This showed a suspected infraumbilical ventral hernia containing a short segment of small bowel with dilated bowel upstream and decompressed distal bowel consistent with obstruction. A subtle indeterminate lesion of the liver dome was also seen. She was then sent for abdominal MRI on 02/18/2021. This showed evidence of a 5.6 cm mass of the small bowel extending to the right rectus abdominus muscle, likely primary adenocarcinoma. There was also a 17 mm and 13 mm liver mass consistent with metastatic disease and mild retroperitoneal lymphadenopathy. The patient had never had a colonoscopy before. Her preoperative CEA level was 9.7. Due to the near obstructing nature of this mass, discussions were made with the patient and decision was made to proceed with exploratory laparotomy with bowel resection. She presented for surgery on 03/09/2021. At the time of exploration, the mass was identified invading into the right rectus abdominus muscle just inferior to the umbilicus. The mass also appeared to be right at the ileocecal valve, therefore a right hemicolectomy was performed with a [id number] ileocolic anastomosis. She was then admitted for recovery after the surgery. She was started on a clear liquid diet. On postop day 1 she was somewhat bloated and nauseated, therefore her diet was not advanced. She was also noted to be hyponatremic. Over the next several days she was able to gradually advance her diet and her bowel function did slowly return. Pathology came back as adenocarcinoma the cecum. On 03/15/2021 she was tolerating a solid diet and her bowels were moving. She still remained hyponatremic, but this was stable. She was discharged on 03/15/2021. Status at Discharge Functional status at discharge: independent ambulation Time Spent with Patient Time attestation: Total time spent providing and/or coordinating discharge services: Time spent: Less than 30 minutes Exam GI: Inspection: non-distended and incision (intact with evan, no drainage) GI Palp: Yes Tenderness to palpation present (GI) (incisional) Auscultation: normal bowel sounds DS: Data Data Completed and Pending Completed studies during hospitalization: Final Diagnosis A. RIGHT COLON WITH TERMINAL ILEUM AND SEPARATE SEGMENT OF SMALL BOWEL, RIGHT HEMICOLECTOMY AND RESECTION: - MODERATELY DIFFERENTIATED COLONIC ADENOCARCINOMA, 6.8 x 4.5 x 3.0 CM, CIRCUMFERENTIAL, IN CECUM AND TERMINAL ILEUM, INVADING THROUGH MUSCULARIS PROPRIA, EXTENSIVELY INVOLVING PERICOLONIC FAT, AND INVADING ABDOMINAL WALL TISSUE, EXTENDING TO RADIAL MARGIN. - PROXIMAL AND DISTAL MARGINS FREE OF NEOPLASM. - METASTATIC ADENOCARCINOMA CONSISTENT WITH CECAL PRIMARY IN 3 OF 16 PERICOLONIC LYMPH NODES (3/16). - SESSILE TUBULAR ADENOMA, 0.7 CM IN GREATEST DIMENSION. - CHANGES CONSISTENT WITH REMOTE APPENDECTOMY. - [id number] SEPARATE SEGMENT OF SMALL BOWEL FREE OF NEOPLASM (SEE COMMENT).. Comment: The predictive panel for colorectal carcinoma will be performed (addendum report to follow). The synoptic reporting is as follows: SURGICAL PATHOLOGY CANCER CASE SUMMARY COLON AND RECTUM: RESECTION PROTOCOL POSTING DATE: AUGUST 2016 (COLON RECTUM RESECTION 4.0.1.0) Procedure: Right hemicolectomy. Tumor site: Cecum and il
[2021-03-15] MEDS: MAGNESIUM OXIDE 400 MG TABLET PO (09:46)
[2021-03-15] MEDS: SODIUM CHLORIDE 500 MG TABLET PO (09:46)
[2021-03-15] MEDS: ENOXAPARIN 40 MG/0.4 ML SYRINGE SUB-Q (09:46)
[2021-03-15] MEDS: PANTOPRAZOLE 40 MG TABLET PO (09:46)
[2021-03-15] MEDS: ALVIMOPAN 12 MG CAPSULE PO (09:46)
== END 2021-03-15 10:20 | disposition home or self-care (01) | DRG 330 ==
LOC: ANH2MED 14:29
PROVIDERS: Surgery; Admitting Provider Surgery; Visit Provider Surgery
PROC: 0DTF0ZZ Resection of Right Large Intestine, Open Approach (ICD-10-PCS; CPT 49000; principal; 2021-03-09 10:30)
DX: C18.0 Malignant neoplasm of cecum (principal); E87.1 Hypo-osmolality and hyponatremia; C78.7 Secondary malignant neoplasm of liver and intrahepatic bile duct; Z87.891 Personal history of nicotine dependence
CPT/HCPCS: 36415; 80048; 82378; 83735; 85014; 85018; 85025; 85027; 86850; 86900; 86901; 88309; 88342; 93005; A9270; C1713; J0690; J1100; J1650; J1885; J2270; J2405; J2704; J2710; J3010; J3480; J7030; J7120

== ENCOUNTER 2021-03-24 13:30 | Outpatient (CLI) | payer MEDICARE, SELFPAY ==
--- NOTE | ~2021-03-24 | US_ITS ---
EXAMINATION:US venous doppler LE BI INDICATION:Localized edema TECHNIQUE: Multiple grayscale, color flow and Doppler images of the right and left lower extremity de ep venous systems were obtained and reviewed. COMPARISON:No prior studies for comparison. FINDINGS: The common femoral, superficial femoral and popliteal veins demonstrate normal respiratory variation, augmentation and compressibility. Color flow is also seen within the posterior tibial, pe roneal, greater saphenous and profunda veins. There are bilateral inguinal lymph nodes which are like ly reactive. IMPRESSION: 1: No lower extremity deep venous thrombosis. Reviewed, dictated and finalized at location A. PHONE OPERATOR CHIEF
== END 2021-03-24 13:31 | disposition home or self-care (01) ==
PROVIDERS: Visit Provider Surgery
DX: R60.0 Localized edema (principal)
CPT/HCPCS: 93970

== ENCOUNTER 2021-04-22 13:05 | Outpatient (CLI) | payer MEDICARE, SELFPAY ==
[2021-04-22 13:34] LABS: INR 1.1; Prothrombin Time 14.1 Seconds (11.1-14.7)
[2021-04-22 13:35] LABS: Partial Thromboplastin Time 31.5 SECONDS (22.3-36.8)
== END 2021-04-22 13:06 | disposition home or self-care (01) ==
LOC: ANHSURGERY 13:09
PROVIDERS: Visit Provider Surgery
DX: C18.0 Malignant neoplasm of cecum (principal); Z01.818 Encounter for other preprocedural examination
CPT/HCPCS: 36415; 85610; 85730

== ENCOUNTER 2021-04-27 01:33 | Day surgery (SDC) | payer MEDICARE, SELFPAY ==
--- NOTE | 2021-04-20 09:34 | PC.NURSE ---
Report to the Outpatient Waiting Room, entrance under the green pavilion located off [facility], at time _1230_ on date _04/27/21__. OR Time: __2:30 PM . - You and your visitor will be asked a series of questions to screen for COVID 19 for your protection. - A mask is required within the hospital. - NO are allowed at this time. Patient visitors will be guided where to wait when not with patient. Preoperative COVID Testing Requirements: No COVID Test needed if: (proof is required; if not received patient will have Rapid Test prior to entry) - Patient has received COVID Vaccine at least 14 days prior to procedure date or - Patient has positive COVID test result within last 90 days of surgery date. COVID Test needed if above criteria is not met If not COVID vaccinated a COVID test must be conducted within 72 hours of surgery and patient is asked to isolate self from time of testing until procedure. You will go to the [facility] for your COVID testing. The [facility] is located at the corner of [address] [facility]. You will only be called if COVID results are positive and your surgeon may reschedule your elective surgery date. Patients may have clear liquids (water, carbonated beverages, clear teas, apple juice) until 3 hours prior to surgery with a maximum of 20 ounces. (1130 AM) - No food from midnight until time of surgery - Infants may have breast milk until 4 hours before surgery, infant formula 6 hours prior to surgery. - Children will be allowed to drink immediately following surgery. If applicable, please bring a bottle or sippy cup to assist with drinking. Juice, water, soda, and popsicles are readily available. For infants on formula, please bring formula the day of surgery. Pacifiers are allowed. Take the following medications with a SIP of water the morning of surgery: NONE Medications to discontinue per physician ___ALL VITAMINS & SUPPLEMENTS___ Date to take last dose____04/23/21 Please no make-up, nail slovak, hairspray, perfume, deodorant, or body powder the day of surgery. No jewelry (including any body piercings) or valuables the day of surgery, leave them at home. Please take a shower or bath the night before, or the morning of, surgery with an antibacterial soap. Wear comfortable, loose fitting clothing. Children are encouraged to wear pajamas. - Jewelry must be removed prior to entering the operating room. Rings and piercings that are not removed may be cut off. - The hospital will not accept responsibility for valuables. - Please leave all valuables, including medications, at home the day of surgery. If you are going home after surgery, a licensed catshovel driver must drive you home. - NO public transportation without another adult. - We recommend that an adult stay with you for 24 hours following discharge. - We also recommend that you do not drive, make important decision, drink alcoholic beverages, or take any drugs that were not prescribed by your health care provider for at least 24 hours after your discharge time. For Pediatric surgeries, we recommend two adults accompany the child home (only one inside the building at this time). Follow any additional instructions given to you from your surgeon. Telephone instructions given to __PT and asked if any additional questions and then verbalized understanding. Patient advised to call surgeon office or pre surgery nurse liaison [phone] if any additional questions.
[2021-04-20 09:36] VITALS: BMI 36.8
--- NOTE | ~2021-04-27 | XR_ITS ---
XR chest port-a-cath/central 04/27/2021 15:43 Indication: Portacatheter insertion Procedure: AP portable chest Comparison: Comparison to multiple prior studies sequentially, with oldest reviewed study dated 11/29. Findings: Borderline heart size. Portacatheter to the left of midline, possibly in the brachiocephali c vein. Heart size normal. There is atherosclerosis and ectasia of the aorta. Mild interstitial edema . Impression: 1: Mild interstitial edema. 2: Left-sided portacatheter tip to the left of midline, possibly in the brachiocephalic vein. Reviewed, dictated and finalized at location B. END OPERATOR Impression: 1: Mild interstitial edema. 2: Left-sided portacatheter tip to the left of midline, possibly in the brachio cephalic vein.
--- NOTE | ~2021-04-27 | XR_ITS ---
EXAMINATION: XR fl guide central line place DATE: 04/27/2021 15:45 INDICATION: Port placement. TECHNIQUE: A single intraoperative fluoroscopic view of the chest was obtained. I was not present. Fl uoroscopy exposure time was 115 seconds. COMPARISON: Chest radiograph 04/27/2021, chest CT 11/29/2014 FINDINGS: There is a left internal jugular port with tip at the junction of the left subclavian vein and left internal jugular vein. IMPRESSION: 1. Port tip at the junction of the left subclavian vein and left internal jugular vein. Reviewed, dictated and finalized at location A. HEMISTRY TEACHER IMPRESSION: 1. Port tip at the junction of the left subclavian vein and left internal jugul ar vein.
[2021-04-27 12:23] VITALS: BP 152/79; PULSE 95; RESP 16; TEMP 36.1; O2SAT 100
--- NOTE | 2021-04-27 12:50 | PM.IMHP ---
H&P: HPI History of Present Illness Date/Time: 04/27/21 12:50 Pt is a 70 y/o F s/p surgical resection for metastatic cecal cancer. Pt has recovered well and is now cleared for adjuvant treatment. Pt is here for port placement. Pt denies previous central venous catheterization. Chief Complaint: malignant cecal cancer Review of Systems Review of Systems: All systems reviewed & are unremarkable except as noted in HPI and below PMFSH Past Medical History Medical History History of pneumonia (~2015) Osteoarthritis of left knee Osteoarthritis of right knee Small bowel obstruction Surgical History Surgical History H/O: hysterectomy (~1993) History of bowel resection 03/09/21 1.Exploratory laparotomy 2. Right hemicolectomy with ileocolic anastomosis 3. En bloc resection small bowel mass with excision of abdominal wall mass invading posterior rectus sheath and rectus muscle measuring 3 cm x 5 cm Hx of cholecystectomy Family History Family History Mother Hypertension Congestive heart failure Father Lung cancer Other Breast cancer Diabetes mellitus Social History Social History Smoking packs per day: 1 Smoking cigarettes per day: 20.0 Years smoked: 30 Smoking pack-years: 30.00 Smoking status: Former smoker Tobacco type: cigarettes Second hand tobacco smoke exposure: Yes Smoking end date: 04/02/99 Alcohol intake: current Drinks per week: 21 Alcohol use details: daily alcohol use Substance use: never Substance use type: does not use Other substance usage details: 3 glasses of wine daily Living arrangements: with family Spiritual care concerns: No Meds Home Medications and Allergies Home Medications Medication Instructions Recorded Confirmed Type vitamins A,C,T-kwmw-qsxtwo 14,320 1 cap PO BID 08/22/19 04/27/21 History unit-226 mg-200 unit capsule cholecalciferol (vitamin D3) 10 2,000 unit PO DAILY 02/11/21 04/27/21 History mcg (400 unit) capsule multivitamin 1 tablet DAILY 03/07/21 04/27/21 History ferrous sulfate [Iron (ferrous 325 mg PO DAILY 04/20/21 04/27/21 History sulfate)] Allergies Allergy/AdvReac Type Severity Reaction Status Date / Time No Known Allergies Allergy Mild Verified 04/27/21 12:34 Exam Const: General: cooperative, comfortable and no acute distress Orientation/consciousness: patient oriented x3 Limitations: no limitations Resp: Auscultation: clear to auscultation bilaterally Cardio: Rate: regular rate Rhythm: regular rhythm GI: Inspection: normal to inspection and incision GI Palp: Yes Soft to palpation Assessment and Plan Assessment and plan (1) Adenocarcinoma of cecum: Code(s): C18.0 - Malignant neoplasm of cecum Status: Acute Assessment and Plan: will set up for VAD placement
[2021-04-27] MEDS: LACTATED RINGERS 1,000 ML 30 ML IV CONT (13:02)
--- NOTE | 2021-04-27 13:03 | WPDHPUPDATE1 ---
History and Physical Update Update Date/Time: 04/27/21 13:03 History and Physical has been reviewed, including an updated exam of the patient. There are NO changes in the patient's condition. Risks, benefits, and alternatives have been discussed and questions answered. Patient agrees to proceed with procedure.
[2021-04-27] MEDS: KETOROLAC 15 MG/ML VIAL (*BKC) IV PUSH (13:04)
--- NOTE | 2021-04-27 13:31 | WPDANESEPPF ---
Anes - Initial Pre Proc Eval Procedure: Operation Date: 04/27/21 14:30 Proposed Procedures p Insertion Peace Cath - Steph Marin MD Date/Time: 04/27/21 13:31 Surgeon: Steph Marin MD Pre Op Diagnosis: Malignant Neoplasm Unspecified of Colon Patient Data Age: 70 Gender: F Height: 1.63 m Weight: 90.35 kg Last Vital Signs Temp 36.1 C L 04/27/21 12:23 Pulse 95 04/27/21 12:23 Resp 16 04/27/21 12:23 BP 152/79 H 04/27/21 12:23 Pulse Ox 100 04/27/21 12:23 Allergies Allergy/AdvReac Type Severity Reaction Status Date / Time No Known Allergies Allergy Mild Verified 04/27/21 12:34 Home Medications Medication Instructions Recorded Confirmed Type vitamins A,C,L-uffj-kswjvc 14,320 1 cap PO BID 08/22/19 04/27/21 History unit-226 mg-200 unit capsule cholecalciferol (vitamin D3) 10 2,000 unit PO DAILY 02/11/21 04/27/21 History mcg (400 unit) capsule multivitamin 1 tablet DAILY 03/07/21 04/27/21 History ferrous sulfate [Iron (ferrous 325 mg PO DAILY 04/20/21 04/27/21 History sulfate)] Laboratory Tests 04/27/21 12:38 Sodium Pending Potassium Pending Chloride Pending Carbon Dioxide Pending Anion Gap Pending BUN Pending Creatinine Pending Estim Creat Clear Calc Pending Estimated GFR Pending Glucose Pending Calcium Pending Patient hx anesthesia problems: none Family hx anesthesia problems: none Results Review: All pre-operative results and documents have been reviewed as part of the pre-operative evaluation. [facility] Past Medical History Medical History Adenocarcinoma of cecum History of pneumonia (~2015) Osteoarthritis of left knee Osteoarthritis of right knee Small bowel obstruction Surgical History Surgical History H/O: hysterectomy (~1993) History of bowel resection 03/09/21 1.Exploratory laparotomy 2. Right hemicolectomy with ileocolic anastomosis 3. En bloc resection small bowel mass with excision of abdominal wall mass invading posterior rectus sheath and rectus muscle measuring 3 cm x 5 cm Hx of cholecystectomy Family History Family History Mother Hypertension Congestive heart failure Father Lung cancer Other Breast cancer Diabetes mellitus Social History Social History Smoking packs per day: 1 Smoking cigarettes per day: 20.0 Years smoked: 30 Smoking pack-years: 30.00 Smoking status: Former smoker Tobacco type: cigarettes Second hand tobacco smoke exposure: Yes Smoking end date: 04/02/99 Alcohol intake: current Drinks per week: 21 Alcohol use details: daily alcohol use Substance use: never Substance use type: does not use Other substance usage details: 3 glasses of wine daily Living arrangements: with family Spiritual care concerns: No Anes - Eval Final PreProcedure Day of Procedure 04/27/21 13:31 Patient weight: obese Heart: regular rate and rhythm Lungs: decreased breath sounds Airway: Mallampati scale class II Neurological: alert and oriented Last oral intake: >/= 8 hours ASA classification: III Emergent: no Anesthetic plan: proceed Anesthesia type and monitoring: general GIVS and standard monitoring Results Review: All pre-operative results and documents have been reviewed as part of the pre-operative evaluation. Informed Consent: The patient's anesthetic plan and its attendant risks and benefits were discussed with the patient/family/POA. Questions were solicited and answers provided to the satisfaction of the patient/family/POA.
[2021-04-27 13:34] LABS: Anion Gap 8 mmol/L (8-16); Blood Urea Nitrogen 3 mg/dL (7-17); Calcium 9.2 mg/dL (8.4-10.2); Carbon Dioxide 22 mmol/L (22-30); Chloride 103 mmol/L (98-107); Estimated CRCL calculation 92 ml/min; Estimated Glomerular Filt Rate > 60; Glucose 126 mg/dL (65-110); Potassium 4.8 mmol/L (3.4-5.0); Sodium 133 mmol/L (137-145)
[2021-04-27] MEDS: ceFAZolin 2 GM/D5W 50 ML 2 GM/50 ML BAG IVPB (14:03)
[2021-04-27] MEDS: BUPIVACAINE/EPINEPHRINE 0.5% 10 ML VIAL 30 ML INFILTRATE (15:20)
[2021-04-27] MEDS: HEPARIN SODIUM 5,000 UNITS/ML VIAL 5000 UNITS IRRIGATION (15:21)
--- NOTE | 2021-04-27 15:21 | W.PM.PROC2 ---
Procedure Note - Detailed Date of Procedure 04/27/21 Pre-op Diagnosis Metastatic colon cancer Post-op Diagnosis same Procedure Performed placement of LIJ VAD under ultrasound and fluroscopic guidance Surgeon Steph Marin MD Anesthesia MAC and local Indications 70 y/o F c metastatic colon cancer needing access for adjuvant tx Findings difficulty getting drawback from L SCV and subsequent placement in L IJ Description of Procedure Patient was brought into the operating room and placed in the supine position. After adequate induction of mac anesthesia, the patient was prepped and draped in normal sterile fashion. Time-out was then done to verify the patient's identity, as well as the procedure being performed. I began by making a small incision in the left chest, I then gained access into the left subclavian vein with an 18 gauge needle. I then attempted to place the guidewire into the vein, however, I could not get the wire to pass over 15 cm. I did attempt to cannulize the subclavian vein a few other times without success. I then used the ultrasound to gain access into the left internal jugular vein. Once access was gained, I placed the guidewire in the vein and confirmed proper positioning. I then locally anesthetized the area in the left chest. I then enlarged the incision including making a subcutaneous pocket inferiorly to allow placement of the port itself. I proceeded to tunnel the catheter from the chest to the left neck insertion site. I then placed a dilating sheath over the guidewire into the left internal jugular vein via sterile Seldinger technique. This was once again done and confirmed via fluoroscopic guidance. I then removed the dilator and the guidewire, now just leaving the sheath in the vein. I then fed the previously flushed catheter into the left internal jugular vein under fluoroscopic guidance. At approximately 28 cm, the catheter was noted to be near the atrial caval junction. I then peeled away the sheath, now just leaving the catheter in the vein. I then was able to easily draw and flush from the catheter. The catheter was cut to fit and attached to the port itself. The port was placed into the previously made subcutaneous pocket and sutured in with 0 Ethibond suture. Final fluoroscopic view showed the termination of the catheter at the atrial caval junction with a nice smooth curvature back to the port itself. I was able to gain access to the port with a Parker needle and was able to easily draw and flush from the port. I then flushed 4 cc of a final heparin flush into the port. The incision was closed with 3 0 Vicryl suture in the subcutaneous tissue and the skin was closed with 4 O Monocryl subcuticular suture. Dermabond was then placed on wound. The patient tolerated the procedure well and will be sent to the recovery room in stable condition. Implants LIJ VAD Estimated Blood Loss 25 Drains No Packing No Pathology none sent Complications No immediate complications Condition stable Disposition PACU
[2021-04-27] MEDS: HEPARIN SODIUM, PORCINE 10,000 UNITS/10 ML VIAL 3000 UNITS IRRIGATION (15:22)
[2021-04-27 15:28] VITALS: BP 153/71; PULSE 93; RESP 15; O2SAT 93
[2021-04-27 15:50] VITALS: BP 164/74; PULSE 80; RESP 15
[2021-04-27 16:20] VITALS: BP 161/77; PULSE 74; RESP 20
[2021-04-27] MEDS: oxyCODONE HCL (*CRX) 5 MG TAB IR PO (16:23)
[2021-04-27 16:45] VITALS: BP 162/88; PULSE 72; RESP 20
== END 2021-04-27 17:00 | disposition home or self-care (01) ==
PROVIDERS: Anesthesiology; Visit Provider Surgery
PROC: (CPT 36561; principal; 2021-04-27 14:30)
DX: C18.0 Malignant neoplasm of cecum (principal); Z87.891 Personal history of nicotine dependence; E66.9 Obesity, unspecified; Z68.34 Body mass index [BMI] 34.0-34.9, adult
CPT/HCPCS: 36561; 36415; 77001; 80048; 85610; 85730; A9270; C1788; J0690; J1644; J1885; J2704; J3010; J7120

== ENCOUNTER 2021-05-19 13:28 | Emergency (ER) | payer MEDICARE, SELFPAY ==
[2021-05-19] VITALS (14 sets, daily range): BP systolic 109–140; BP diastolic 69–76; PULSE 62–108; RESP 18–20; TEMP 36.8; O2SAT 90–99
--- NOTE | ~2021-05-19 | CT_ITS ---
EXAMINATION: CTA chest PE protocol EXAM DATE: 05/19/2021 15:27 INDICATION: Tearing pain between scapulae, recent hx of CA. TECHNIQUE: Spiral CTA of the chest (pulmonary arteries) was performed with 100 cc Omnipaque 350 intr avenous contrast injection. Images were acquired during the pulmonary arterial phase. Coronal maxi mum intensity projection 3D-reconstructions were created by the technologist on dedicated workstation . Axial, coronal and sagittal reformatted images were reviewed. The dose-length product (DLP) for t his examination was 695.95 mGy-cm. The exposure was tailored according to patient size (auto mA exp osure control), and iterative reconstruction (ASIR) was used as additional dose reduction technique. Comparison is made to prior examination from 11/29/2014. FINDINGS: There are no pulmonary emboli in the 1st through 3rd order (central and interlobar) pulmon shira arteries. Some loss of attenuation in the right basilar segmental pulmonary from respiratory mot ion, these regions not confidently evaluated. No Intraluminal filling defects identified. No thorac ic aortic dissection. There is right upper lobe granuloma. Mild emphysema. Dependent subsegmental at electasis. Small to moderate pericardial effusion. Trace pleural effusions. Mild cardiomegaly. Trac heobronchial tree is patent. There is no mediastinal, hilar or axillary lymphadenopathy. There is no pneumothorax. Left-sided portacatheter. There is mild coronary arterial calcification, arterial s clerosis. There is hepatic steatosis. There is thoracic spondylosis without osteoblastic or osteoly tic lesions identified. Paraspinal musculature unremarkable. IMPRESSION: 1. Limited right basilar segmental evaluation, but no pulmonary emboli are suspected. 2. Bibasilar subsegmental atelectasis. 3. Mild cardiomegaly. Small to moderate pericardial effusion. 4. Trace pleural effusions. 5. Hepatic steatosis. Reviewed, dictated and finalized at location G. WARE QUALITY AUTOMATION ENGINEER IMPRESSION: 1. Limited right basilar segmental evaluation, but no pulmonary emboli are sher pected. 2. Bibasilar subsegmental atelectasis. 3. Mild cardiomegaly. Small to moderate pericardial effusion. 4. Trace pleural effusions. 5. Hepatic steatosis.
--- NOTE | ~2021-05-19 | CT_ITS ---
EXAMINATION: CT cervical spine wo con EXAM DATE: 05/19/2021 15:26 INDICATION: Cervical spine pn with CA. During pain between scapula. TECHNIQUE: Spiral CT of the cervical spine was performed without contrast. Axial images were reviewe d. Coronal and sagittal reformatted images cervical spine were also reviewed. The dose-length produc t (DLP) for this examination was 448.74 mGy-cm. The exposure was tailored according to patient size (auto mA exposure control), and iterative reconstruction (ASIR) was used as additional dose reduction technique. There is no prior study for comparison. FINDINGS: There is moderate disc disease at C3-4, C5-6 and C6-7, mild to moderate at C4-5. The verte bral bodies are aligned in the AP dimension. The odontoid process is intact. The lateral masses of C 1 line up with C2. Prevertebral soft tissue and pre-dens space are within normal limits. There are no osteoblastic or osteolytic lesions identified. Mild cervical levoscoliosis. Level by level evaluation: C2-C3: Disc does not extend beyond the endplate margin. Uncovertebral joint arthropathy: None. Facet joint arthropathy: Mild bilateral. Neural foraminal stenosis: No stenosis. Central canal stenosis: No stenosis. C3-C4: There is a mild diffuse disc bulge. Uncovertebral joint arthropathy: Moderate right, mild left. Facet joint arthropathy: Mild bilateral. Neural foraminal stenosis: Moderate right. Central canal stenosis: No stenosis. C4-C5: Disc does not extend beyond the endplate margin. Uncovertebral joint arthropathy: Mild bilateral. Facet joint arthropathy: Mild bilateral. Neural foraminal stenosis: No stenosis. Central canal stenosis: No stenosis. C5-C6: There is a mild diffuse disc bulge. Uncovertebral joint arthropathy: Moderate left, mild to moderate right. Facet joint arthropathy: Mild to moderate bilateral. Neural foraminal stenosis: Mild bilateral. Central canal stenosis: No stenosis. C6-C7: There is a mild diffuse disc bulge. Uncovertebral joint arthropathy: Mild to moderate left, mild right. Facet joint arthropathy: Mild bilateral. Neural foraminal stenosis: Mild bilateral, left more than right. Central canal stenosis: No stenosis. C7-T1: Disc does not extend beyond the endplate margin. Uncovertebral joint arthropathy: None. Facet joint arthropathy: Mild bilateral. Neural foraminal stenosis: No stenosis. Central canal stenosis: No stenosis. IMPRESSION: 1. Moderate cervical spondylosis. 2. No acute findings or evidence of cervical metastatic disease. Spine Reviewed, dictated and finalized at location G. INE LAY OUT WORKER
--- NOTE | 2021-05-19 13:32 | ECG_ITS ---
Measurements Intervals Campbell Rate: 106 P: 41 MD: 160 QRS: -10 QRSD: 82 T: 37 QT: 320 QTc: 426 Interpretive Statements SINUS TACHYCARDIA MINIMAL Q WAVES- INFERIOR LEADS BORDERLINE T WAVE ABNORMALITY- ANTERIOR LEADS BASELINE ARTIFACT- I, II, III, AVR, AVL BORDERLINE ECG Electronically Signed On 05-19-2021 14:08:38 BLOOD BANK COORDINATOR by Ludin Bland D.O.
--- NOTE | 2021-05-19 14:44 | ED.GENADULT ---
HPI - General Adult General Chief complaint: Back Pain/Injury Stated complaint: upper back and neck pain Time Seen by Provider: 05/19/21 13:40 Source: patient Mode of arrival: ambulatory Limitations: no limitations History of Present Illness HPI narrative: This 71 year old female patient with significant PMH of colon cancer with recent placement of port to begin chemotherapy tomorrow, presented to the ER with complaints of having severe pain in between her scapulae and radiates up into the base of her neck. She denies any acute injury, stating she was just sitting at home last night when the pain began. She has not found anything that makes the pain worse or better and describes it as an ache. It is constantly present. She took a left over [place] from her surgery and did not have relief with it. Pt. also states that she has a spot on her liver that they cannot tell if it is cancerous or not because they were unable to adequately get to it to biopsy it. She is supposed to be seeing a Lavatory Attendant at [facility] for that. MD complaint: Back and neck pain as in HPI Onset (ago): day(s) (1) Location: neck and back Radiation: non-radiation Severity: severe Severity scale (1-10): 9 Quality: aching and constant Pain Consistency: constant Relieving factors: none Exacerbating factors: none Associated symptoms: denies other symptoms Treatments prior to arrival: other (Left over norco) Related Data Home Medications Medication Instructions Recorded Confirmed vitamins A,C,O-zjfo-oaxhum 14,320 1 cap PO BID 08/22/19 04/27/21 unit-226 mg-200 unit capsule cholecalciferol (vitamin D3) 10 2,000 unit PO DAILY 02/11/21 04/27/21 mcg (400 unit) capsule multivitamin 1 tablet DAILY 03/07/21 04/27/21 ferrous sulfate [Iron (ferrous 325 mg PO DAILY 04/20/21 04/27/21 sulfate)] Allergies Allergy/AdvReac Type Severity Reaction Status Date / Time No Known Allergies Allergy Mild Verified 05/19/21 13:38 Review of Systems Review of Systems: All systems reviewed & are unremarkable except as noted in HPI and below Constitutional: Constitutional: Reports no additional constitutional complaints Cardiovascular: Cardiovascular: Denies chest pain, Denies rapid heart rate and Denies radiating jaw, neck or arm pain Respiratory: Comments: Pt. endorses that taking a deep breath makes her pain worse, but she is not dyspneic. Gastrointestinal: Gastrointestinal: Denies diarrhea, Denies nausea and Denies vomiting Musculoskeletal: Musculoskeletal: Reports as per HPI and Reports back pain Neurologic: Denies dizziness, Denies focal weakness and Denies weakness Psychiatric: Psychiatric: Denies anxiety and Denies depression Endocrine: Endocrine: Denies fatigue and Denies polydipsia Hematologic/Lymphatic: Hematologic/Lymphatic: Denies easy bleeding and Denies easy bruising Allergic/Immunologic: Allergic/Immunologic: Denies lip swelling, Denies throat swelling, Denies tongue swelling and Denies wheezing [facility] Past Medical History Medical History Adenocarcinoma of cecum History of pneumonia (~2015) Osteoarthritis of left knee Osteoarthritis of right knee Small bowel obstruction Surgical History Surgical History H/O: hysterectomy (~1993) History of bowel resection 03/09/21 1.Exploratory laparotomy 2. Right hemicolectomy with ileocolic anastomosis 3. En bloc resection small bowel mass with excision of abdominal wall mass invading posterior rectus sheath and rectus muscle measuring 3 cm x 5 cm Hx of cholecystectomy Family History Family History Mother Hypertension Congestive heart failure Father Lung cancer Other Breast cancer Diabetes mellitus Social History Social History Smoking packs
[2021-05-19 14:54] LABS: Basophils Absolute Auto 0.1 K/mm3 (0.0-0.1); Basophils Percent Auto 0.5 % (0.2-1.2); Hematocrit 38.5 % (37.0-47.0); Hemoglobin 12.8 g/dL (12.0-15.0); Immature Granulocyte Absolute 0.06 K/mm3 (0.00-0.031); Immature Granulocyte Percent A 0.5 % (0-0.5); Lymphocytes Percent Auto 6.4 % (18.3-44.2); Mean Corpuscular HGB Conc 33.2 g/dl (32-36); Mean Corpuscular Hemoglobin 33.2 pg (26-34); Mean Corpuscular Volume 99.7 fl (80-100); Mean Platelet Volume 9.8 fl (7.4-10.4); Monocytes Absolute Auto 1.1 K/mm3 (0.1-0.6); Monocytes Percent Auto 8.7 % (2.6-8.5); Neutrophils Absolute Auto 10.6 K/mm3 (1.3-6.7); Neutrophils Percent Auto 83.9 % (45.5-73.1); Platelet Count Result 254 k/mm3 (150-375); Red Blood Count 3.86 M/mm3 (4.2-5.4); Red Cell Distribution Width 17.5 % (11.5-14.5); White Blood Count 12.6 K/mm3 (4.5-10.0)
[2021-05-19 15:00] LABS: Alanine Aminotransferase 37 U/L (4-35); Albumin Level 3.9 g/dL (3.5-5.1); Alkaline Phosphatase 158 U/L (38-126); Anion Gap 7 mmol/L (8-16); Aspartate Amino Transferase 58 U/L (14-36); Blood Urea Nitrogen 9 mg/dL (7-17); Calcium 8.8 mg/dL (8.4-10.2); Carbon Dioxide 24 mmol/L (22-30); Chloride 99 mmol/L (98-107); Estimated CRCL calculation 70 ml/min; Estimated Glomerular Filt Rate > 60; Glucose 169 mg/dL (65-110); Potassium 5.3 mmol/L (3.4-5.0); Sodium 130 mmol/L (137-145)
[2021-05-19] MEDS: SODIUM CHLORIDE 0.9% IV 1,000 ML 999 ML IV CONT (15:33)
[2021-05-19] MEDS: methocarbamoL 750 MG TABLET PO (15:45)
[2021-05-19 18:54] LABS: Alanine Aminotransferase 33 U/L (4-35); Albumin Level 3.6 g/dL (3.5-5.1); Alkaline Phosphatase 133 U/L (38-126); Anion Gap 8 mmol/L (8-16); Aspartate Amino Transferase 50 U/L (14-36); Bilirubin,Total 0.9 mg/dL (0.2-1.3); Blood Urea Nitrogen 9 mg/dL (7-17); Calcium 8.4 mg/dL (8.4-10.2); Carbon Dioxide 21 mmol/L (22-30); Chloride 101 mmol/L (98-107); Estimated CRCL calculation 81 ml/min; Estimated Glomerular Filt Rate > 60; Glucose 147 mg/dL (65-110); Magnesium 1.5 mg/dL (1.6-2.3); Potassium 4.5 mmol/L (3.4-5.0); Sodium 130 mmol/L (137-145)
[2021-05-19 19:06] LABS: Troponin I < 0.012 ng/mL (0.000-0.034)
[2021-05-19] MEDS: MAGNESIUM SULF 2 GM/WATER 50ML 2 GM/50 ML BAG IVPB (19:10)
--- NOTE | 2021-05-26 10:40 | PC.NURSE ---
late entry-- magnisum infusion complete at 2010
== END 2021-05-19 20:19 | disposition home or self-care (01) ==
PROVIDERS: Nurse Practitioner Adult Health; Emergency Provider Emergency Medicine
DX: M54.6 Pain in thoracic spine (principal); C18.9 Malignant neoplasm of colon, unspecified; Z87.01 Personal history of pneumonia (recurrent); M17.0 Bilateral primary osteoarthritis of knee; Z90.49 Acquired absence of other specified parts of digestive tract; Z87.891 Personal history of nicotine dependence; I51.7 Cardiomegaly; K76.0 Fatty (change of) liver, not elsewhere classified; M47.812 Spondylosis without myelopathy or radiculopathy, cervical region; R00.0 Tachycardia, unspecified; R94.31 Abnormal electrocardiogram [ECG] [EKG]
CPT/HCPCS: 36415; 71275; 72125; 80053; 83735; 84484; 85025; 93005; 96361; 96365; 99284; A9270; J3475; J7030; Q9967

== ENCOUNTER 2021-08-24 01:01 | Day surgery (SDC) | payer MEDICARE, SELFPAY ==
--- NOTE | 2021-08-19 10:54 | PC.NURSE ---
Report to the Outpatient Waiting Room, entrance under the green pavilion located off [address], at time _1400 on date _08/24/21 . OR Time: __1500 . - You and your visitor will be asked a series of questions to screen for COVID 19 for your protection. - Only one visitor is allowed at this time. - The patient visitor is requested to leave or wait in car when not with patient. - A mask is required within the hospital. LIGHT MEAL DAY OF SURGERY Patients may have clear liquids (water, carbonated beverages, clear teas, apple juice) until 3 hours prior to surgery with a maximum of 20 ounces. - No food from midnight until time of surgery - Infants may have breast milk until 4 hours before surgery, formula 6 hours prior to surgery. - Children will be allowed to drink immediately following surgery. If applicable, please bring a bottle or sippy cup to assist with drinking. Juice, water, soda, and popsicles are readily available. For infants on formula, please bring formula the day of surgery. Pacifiers are allowed. Take the following medications with a SIP of water the morning of surgery: ____ALL ROUTINE MEDS EXCEPT... PT STATES PER DR JAY GILL STOP 2 DAYS PRE OP Medications to discontinue per physician Date to take last dose___08/21/21 Please no make-up, nail mongolian, hairspray, perfume, deodorant, or body powder the day of surgery. No jewelry (including any body piercings) or valuables the day of surgery, leave them at home. Please take a shower or bath the night before, or the morning of, surgery with an antibacterial soap. Wear comfortable, loose fitting clothing. Children are encouraged to wear pajamas. - Jewelry must be removed prior to entering the operating room. Rings and piercings that are not removed may be cut off. - The hospital will not accept responsibility for valuables. - Please leave all valuables, including medications, at home the day of surgery. If you are going home after surgery, a licensed wrecking car driver must drive you home. - NO public transportation without another adult. - We recommend that an adult stay with you for 24 hours following discharge. - We also recommend that you do not drive, make important decision, drink alcoholic beverages, or take any drugs that were not prescribed by your health care provider for at least 24 hours after your discharge time. For Pediatric surgeries, we recommend two adults accompany the child home (only one inside the building at this time). Follow any additional instructions given to you from your surgeon. If you or anyone in your household have experienced Covid symptoms in the past week, please notify your surgeon or the nurse liaison at the phone number below for possible testing. Telephone instructions given to ___PATIENT and asked if any additional questions and then verbalized understanding. Patient advised to call surgeon office or pre surgery nurse liaison [phone] if any additional questions.
[2021-08-19 11:01] VITALS: BMI 32.4
[2021-08-24] VITALS (7 sets, daily range): BP systolic 99–125; BP diastolic 56–61; PULSE 59–68; RESP 16–20; TEMP 36.7; O2SAT 98–100
--- NOTE | 2021-08-24 10:54 | PM.HPGS ---
History of Present Illness History of Present Illness Consent: Risks, benefits, and alternatives of removal of Port-A-Cath have been discussed and questions answered. Patient agrees to proceed with procedure. Chief complaint: colon cancer Narrative: Shy Byrd is a 71 year old female who has been seen Dr. Leyva a medical oncologist in [address] [place] [address]. 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 She has a known metastasis to the liver and other plans are being made for continued treatment of this more specifically to the liver. Patient also has known atrial fibrillation will stop her anticoagulation 2 days prior to removal of the Port-A-Cath. Review of Systems Review of Systems: Review of Systems: ?? All systems review ed & are unremarka ble except as note d in HPI and below Constitutional:??L Constitutional: De nies chills, Denie s fever(s), Denies headache(s) and D enies weight loss Eyes:?? Eyes: Denies al e in vision ENT:?? Denies dizziness, Denies headache(s) , Denies neck mass and Denies throat swelling Cardiovascular:??L Cardiovascular: De nies chest pain, D enies lightheadedn ess and Denies dys pnea Respiratory:?? Respiratory: Denie s cough, Denies dy spnea and Denies w heezing Gastrointestinal:? ? Gastrointestinal: Denies abdominal p ain, Denies change in bowel habits, Denies nausea and Denies vomiting Genitourinary:?? Genitourinary: Den ies hematuria and Denies dysuria Musculoskeletal:?? Musculoskeletal: no recent problems . Integumentary/Franny sts:?? Skin/Breast: No specific problems. No recent proble ms with scar from port placement. Neurologic:?? Denies dizziness a nd Denies headache (s) Allergic/Immunolog ic:?? Allergic/Immunolog ic: Denies throat swelling and Denie s wheezin PMFSH Past Medical History Medical History Adenocarcinoma of cecum History of pneumonia (~2016) Osteoarthritis of left knee Osteoarthritis of right knee Small bowel obstruction Surgical History Surgical History H/O: hysterectomy (~1993) History of bowel resection 03/09/21 1.Exploratory laparotomy 2. Right hemicolectomy with ileocolic anastomosis 3. En bloc resection small bowel mass with excision of abdominal wall mass invading posterior rectus sheath and rectus muscle measuring 3 cm x 5 cm Hx of cholecystectomy Family History Family History Mother Hypertension Congestive heart failure Father Lung cancer Other Breast cancer Diabetes mellitus Social History Social History Smoking packs per day: 1 Smoking cigarettes per day: 20.0 Years smoked: 30 Smoking pack-years: 30.00 Smoking status: Former smoker Tobacco type: cigarettes Second hand tobacco smoke exposure: Yes Smoking en
--- NOTE | 2021-08-24 12:06 | WPDHPUPDATE1 ---
History and Physical Update Update Date/Time: 08/24/21 12:06 History and Physical has been reviewed, including an updated exam of the patient. There are NO changes in the patient's condition. Risks, benefits, and alternatives have been discussed and questions answered. Patient agrees to proceed with procedure.
--- NOTE | 2021-08-24 13:24 | W.PM.PROC2 ---
Procedure Note - Detailed Date of Procedure 08/24/21 Pre-op Diagnosis 1. Occluded left jugular Port-A-Cath 2. colon cancer Post-op Diagnosis Same Procedure Performed Removal of Peace-cath Surgeon Vincent Cline MD Power Press Operator none Anesthesia MAC and Local (2% Xylocaine with Epi) Indications Patient has had a Port-A-Cath in for chemotherapy in the past. Now no longer in use and may be occluded Plan to remove under local anesthetic. Findings Port and catheter intact. There may be and some clot at the tip of the port on inspection upon removal. Port sent for gross exam only to pathology because it was occluded. Description of Procedure Prior to the procedure the patient was seen in the holding area and the area of proposed surgery was marked. All questions were answered and the patient wished to proceed with removal of the Port-A-Cath. The patient was brought to the operating room and placed supine. The entire left neck, chest, and shoulder were prepped with chlorhexidine. The area was draped off. Time-out was performed confirming patient and site of surgery. Following this a 15 blade knife was used to make incision directly on the scar from the previous port placement. This was done after infiltrating local anesthetic into the area of and inferior to the scar and into the area of the pocket containing the port to some degree using 2% Xylocaine with epinephrine. Following this we carefully dissected down to the junction of the port and catheter. Bovie cautery with needle-tip was used to carefully incise the capsule around the port and free up the scar tissue around the junction of the port and catheter. Following this the port was brought up and out of the pocket. Then watching the patient's respirations I carefully removed the catheter in one smooth pull while applying pressure in the lower right neck area at the catheter exit site as the patient was breathing out. Pressure was held for 1 minute. I used Bovie cautery on some the subcutaneous tissues as we waited for good clotting. Again hemostasis was checked in the wound using Bovie cautery for superficial hemostasis in the subcutaneous tissues. Following this closure was obtained with 2 layers. I used buried subcutaneous sutures of 3-0 Vicryl in the subcutaneous layer followed by a running subcuticular closure of 4-0 Monocryl on the skin. Patient tolerated the procedure well. Estimated blood loss was 3 cc Sponge, needle, and instrument counts were correct at the end the procedure and patient was taken to the outpatient recovery area in good condition. Implants none Estimated Blood Loss 3 Drains No Packing No Pathology Other ( Because his there was suspicion of the port being clotted or clogged, the port was sent to pathology for gross exam only.) Complications No immediate complications Condition Stable Disposition Same day [facility] Billing Surgery - Charge Forward: Surgery Billing
== END 2021-08-24 13:36 | disposition home or self-care (01) ==
PROVIDERS: Visit Provider Surgery
PROC: (CPT 36589; principal; 2021-08-24 13:30)
DX: T82.594A Other mechanical complication of infusion catheter, initial encounter (principal); Y83.8 Other surgical procedures as the cause of abnormal reaction of the patient, or of later complication, without mention of misadventure at the time of the procedure; C78.7 Secondary malignant neoplasm of liver and intrahepatic bile duct; K63.89 Other specified diseases of intestine; Z85.038 Personal history of other malignant neoplasm of large intestine; Z90.49 Acquired absence of other specified parts of digestive tract; Z98.0 Intestinal bypass and anastomosis status; Z87.891 Personal history of nicotine dependence; I48.91 Unspecified atrial fibrillation; Z79.01 Long term (current) use of anticoagulants
CPT/HCPCS: 36590; 88300; A9270

== ENCOUNTER 2022-09-15 14:22 | Outpatient (CLI) | payer MEDICARE, SELFPAY ==
--- NOTE | ~2022-09-15 | DEXA_ITS ---
Bone Density Report Name: JESSIE WOLFF Age: 72 Sex: Female Ethnicity: White Date of : 1950 Indication: postmenopausal; screening for osteoporosis; height loss; cancer; hysterectomy; Referring Provider: SYDNI, DAVID Study: Bone densitometry was performed. Exam Date: September 15, 2022 Accession number: [id number] Bone Density: Region BMD T-score Z-score Classification AP Spine(L1-L4) 1.028 -0.2 2.2 Normal Femoral Neck (Left) 0.682 -1.5 0.5 Osteopenia Total Hip (Left) 0.940 0.0 1.7 Normal Femoral Neck (Right) 0.634 -1.9 0.1 Osteopenia Total Hip (Right) 0.912 -0.2 1.5 Normal Total Hip Mean 0.926 -0.1 1.6 Normal World Health Organization criteria for BMD impression classify patients as: Normal (T-score at or above -1.0), Osteopenia (T-score between -1.0 and -2.5), or Osteoporosis (T-score at or below -2.5). 10-year Fracture Risk(1): Major Osteoporotic Fracture 11% Hip Fracture 2.3% Reported Risk Factors: [place] (), Neck BMD=0.634, BMI=44.6 (1) FRAX(R) Version 3.08. Fracture probability calculated for an untreated patient. Fracture probability may be lower if the patient has received treatment. Previous Exams: Region Exam Age BMD T-score BMD Change BMD Change Date g/cm2 vs Baseline vs Previous AP Spine (L1-L4) 09/15/2022 72 1.028 -0.2 0.072 (7.5%)* 0.072 (7.5%)* 01/11/2015 64 0.957 -0.8 Total Hip(Left) 09/15/2022 72 0.940 0.0 -0.033 (-3.4%) -0.033 (-3.4%) 01/11/2015 64 0.973 0.3 Total Hip(Right) 09/15/2022 72 0.912 -0.2 -0.064 (-6.6%) -0.064 (-6.6%) 01/11/2015 64 0.976 0.3 *Denotes significance at 95% confidence level, LSC for AP Spine = 0.022 g/cm2, LSC for Total Hip = 0.027 g/cm2 Clinical Information Provided by Patient: Has used the following medications: Vitamin D Has the following medical conditions: Cancer, Hysterectomy Patient maximum height was 64 Menopause Age: 43 No regular weight bearing exercise Does not regularly consume dairy products Onset of menses at age 1 Number of children 13 Impression: The patient has low bone mass, based on the Right Femoral Neck T-score. The patient has an estimated ten-year risk of hip fracture of 2.3% and an estimated ten-year risk of major fracture of 11%, based on the WHO FRAX algorithm. The BMD for the Total Hip(Left) decreased, changing by -3.4% since the last DXA exam. The BMD for the Total Hip(Right) decreased, changing b
--- NOTE | ~2022-09-15 | MM_ITS ---
EXAMINATION: MM screening elio BI w brenda HISTORY: Screening mammogram TECHNIQUE: Craniocaudal and mediolateral oblique 3-D tomosynthesis images were obtained and synthetic 2-D images were generated. CAD analysis was submitted and interpreted. COMPARISON: 01/17/2016 bilateral screening mammogram BREAST PARENCHYMAL COMPOSITION: The breasts are almost entirely fatty. FINDINGS: There is no evidence of suspicious mass, calcification, or architectural distortion to sugg est malignancy in either breast. There has been no suspicious interval change. IMPRESSION: 1. No mammographic evidence of malignancy. 2. Recommend routine screening mammography in one year. BI-RADS Category 1: Negative Reviewed, dictated and finalized at location A.
== END 2022-09-15 14:23 | disposition home or self-care (01) ==
PROVIDERS: Visit Provider Nurse Practitioner Family
DX: Z12.31 Encounter for screening mammogram for malignant neoplasm of breast (principal); M81.0 Age-related osteoporosis without current pathological fracture; M85.852 Other specified disorders of bone density and structure, left thigh; M85.851 Other specified disorders of bone density and structure, right thigh
CPT/HCPCS: 77063; 77067; 77080

== ENCOUNTER 2023-09-18 13:38 | Outpatient (CLI) | payer MEDICARE, SELFPAY ==
--- NOTE | ~2023-09-18 | MM_ITS ---
EXAMINATION: MM screening elio BI w brenda HISTORY: Screening TECHNIQUE: Craniocaudal and mediolateral oblique 3-D tomosynthesis images were obtained and synthetic 2-D images were generated. CAD analysis was submitted and interpreted. COMPARISON: Comparison to multiple prior studies sequentially, with oldest reviewed study dated 12/31. BREAST PARENCHYMAL COMPOSITION: Not dense: There are scattered areas of fibroglandular density. FINDINGS: There is no evidence of suspicious mass, calcification, or architectural distortion to sugg est malignancy in either breast. There has been no suspicious interval change. IMPRESSION: 1. No mammographic evidence of malignancy. 2. Recommend routine screening mammography in one year. BI-RADS Category 1: Negative Reviewed, dictated and finalized at location B.
== END 2023-09-18 13:39 | disposition home or self-care (01) ==
LOC: ANHIMG 13:41
PROVIDERS: PCP Nurse Practitioner Family; Visit Provider Nurse Practitioner Family
DX: Z12.31 Encounter for screening mammogram for malignant neoplasm of breast (principal)
CPT/HCPCS: 77063; 77067